=== PATIENT | female | born 1995 | race Caucasian/White ===

== ENCOUNTER → 2016-10-30 | Outpatient (CLI) | payer BC, OTHER ==
--- NOTE | 2016-10-30 08:44 | MR ---
EXAMINATION TYPE: MR brain wo con DATE OF EXAM: 10/30/2016 8:36 AM COMPARISON: NONE HISTORY: headaches Multiplanar and multispin-echo imaging of the brain was performed . The ventricles, basal cisterns and sulci overlying the cerebral convexities are within normal limits. There is no evidence for midline shift or mass effect. Acute intracranial hemorrhage or extra-axial collection is not evident. The brain parenchyma reveals no abnormal increased signal. No acute edema is identified. There is near complete opacification right maxillary sinus with obstruction of the right ostiomeatal unit. Mild mucosal thickening is seen of the left maxillary sinus. Moderate opacification is seen of the ethmoid air cells. There is a mild opacification and thickening of the sphenoid sinus and frontal sinuses. Nasal septum appears to be deviated from left to right. IMPRESSION: 1. No intracranial abnormalities seen. 2. Severe chronic pansinusitis.
[2016-10-30 09:24] LABS: CH 27.3; CHCM 31.8; HDW 2.66; HGB 12.4 gm/dL (11.4-16.0); MCH 26.8 pg (25.0-35.0); MCHC 31.1 g/dL (31.0-37.0); Mean Platelet Volume 6.8; RBC 4.64 m/uL (3.80-5.40); WBC 7.1 k/uL (3.8-10.6)
[2016-10-30 09:34] LABS: ALT 27 U/L (9-52); AST 23 U/L (14-36); Alkaline Phosphatase 72 U/L (38-126); Anion Gap 9 mmol/L; Blood Urea Nitrogen 12 mg/dL (7-17); Calcium 9.7 mg/dL (8.4-10.2); Carbon Dioxide 27 mmol/L (22-30); Chloride 108 mmol/L (98-107); Glucose 89 mg/dL (74-99); Non-African American GFR(MDRD) >60 (>60 ml/min/1.73 sqM); Potassium 4.3 mmol/L (3.5-5.1); Sodium 144 mmol/L (137-145); Total Bilirubin 0.5 mg/dL (0.2-1.3); Total Protein 7.5 g/dL (6.3-8.2)
== END | disposition home or self-care (01) ==
LOC: RADMRIMAIN 07:52
PROVIDERS: ATTEND Psychiatry & Neurology Pain Medicine
DX: J32.4 Chronic pansinusitis (principal); R51 Headache
CPT/HCPCS: 70551; 80053; 85027

== ENCOUNTER 2017-01-04 21:37 | Inpatient (IN) | payer BC, OTHER ==
[2017-01-04] MEDS ORDERED: SODIUM CHLORIDE 0.9% 1,000 ML IV ONE (22:38)
[2017-01-04] MEDS ORDERED: ACETAMINOPHEN TAB 325 MG TAB PO STA (22:38)
[2017-01-04 23:45] LABS: Appearance,Urine Clear (Clear); Bilirubin,Urine Negative (Negative); Glucose,Urine (UA) Negative (Negative); Ketones,Urine Negative (Negative); Leukocyte Esterase,Urine Negative (Negative); Mucus,Urine Rare /hpf; Nitrite,Urine Negative (Negative); PH, Urine 6.5 (5.0-8.0); Particle Count 4096; Protein,Urine Trace (Negative); RBC,Urine 2 /hpf (0-5); Specific Gravity,Urine 1.025 (1.001-1.035); Squamous Epithelial Cell,Urine 2 /hpf (0-4); UA Billing (MACRO vs. MICRO) MICRO; Urobilinogen,Urine <2.0 mg/dL (<2.0); WBC,Urine 2 /hpf (0-5)
[2017-01-04 23:48] LABS: ALT 43 U/L (9-52); AST 31 U/L (14-36); Alkaline Phosphatase 72 U/L (38-126); Anion Gap 10 mmol/L; Blood Urea Nitrogen 14 mg/dL (7-17); Calcium 9.4 mg/dL (8.4-10.2); Carbon Dioxide 22 mmol/L (22-30); Chloride 106 mmol/L (98-107); Glucose 112 mg/dL (74-99); Non-African American GFR(MDRD) >60 (>60 ml/min/1.73 sqM); Potassium 4.4 mmol/L (3.5-5.1); Sodium 138 mmol/L (137-145); Total Bilirubin 0.4 mg/dL (0.2-1.3); Total Protein 7.5 g/dL (6.3-8.2)
[2017-01-05 00:13] LABS: Basophils % (A) 0 %; CH 28.2; CHCM 33.2; Eosinophils % (A) 2 %; HCT 36.2 % (34.0-46.0); HDW 2.59; HGB 11.8 gm/dL (11.4-16.0); Luc # (Auto) 0.05; Luc % (Auto) 3; Lymphocytes # (A) 0.2 k/uL (1.0-4.8); Lymphocytes % (A) 12 %; MCH 27.7 pg (25.0-35.0); MCHC 32.6 g/dL (31.0-37.0); MCV 85.1 fL (80.0-100.0); Mean Platelet Volume 6.7; Monocytes # (A) 0.1 k/uL (0-1.0); Monocytes % (A) 5 %; Neutrophils # (A) 1.2 k/uL (1.3-7.7); Neutrophils % (A) 79 %; RBC 4.26 m/uL (3.80-5.40); RDW 13.5 % (11.5-15.5); WBC (Perox) 1.79
--- NOTE | 2017-01-05 00:29 | XR ---
EXAM: XR Chest, 2 Views CLINICAL HISTORY: Reason: cough TECHNIQUE: Frontal and lateral views of the chest. COMPARISON: No relevant prior studies available. FINDINGS: Lungs: Unremarkable. No consolidation. Pleural space: Unremarkable. No pneumothorax. Heart: Unremarkable. No cardiomegaly. Mediastinum: Unremarkable. Bones/joints: Unremarkable. IMPRESSION: Unremarkable chest x-rays.
[2017-01-05 00:35] LABS: WBC 1.5 k/uL (3.8-10.6)
[2017-01-05] MEDS ORDERED: MORPHINE SULFATE 4 MG/ML SYRINGE IV PRN (01:38)
[2017-01-05] MEDS ORDERED: NALOXONE 0.4 MG/ML 1 ML VIAL IV PRN (01:38)
[2017-01-05] MEDS ORDERED: ACETAMINOPHEN TAB 325 MG TAB PO PRN (01:38)
[2017-01-05] MEDS ORDERED: ONDANSETRON 4 MG/2 ML VIAL IVP PRN (01:38)
[2017-01-05] MEDS ORDERED: ALBUTEROL NEBULIZED 2.5 MG/3 ML INHALATION PRN (01:40)
[2017-01-05] MEDS ORDERED: SODIUM CHLORIDE 0.9% 1,000 ML IV ONE (01:40)
--- NOTE | 2017-01-05 01:42 | ED ---
Fever HPI - General Chief Complaint: Fever Stated Complaint: fever Source: patient Mode of arrival: ambulatory Limitations: no limitations - History of Present Illness Initial Comments: 21-year-old female with no past medical history presented for evaluation of fever for the last 2 days. She denies any other associated symptoms although she stated at one point she had a little bit of lower abdominal pain for a couple minutes couple days ago which has since resolved. She states earlier today she had a little bit of shortness of breath and cough for less than a minute which has since resolved. She denies any lightheadedness , dizziness, nausea, vomiting, chest pain, cough, abdominal pain. She does admit to a mild frontal headache for the last couple hours but otherwise nothing else significant. No change in vision. She also had a rash a couple days ago but this has also since resolved. - Related Data Home Medications Medication Instructions Recorded Confirmed Levothyroxine Sodium [Synthroid] 50 mcg PO DAILY 03/14/16 01/04/17 Albuterol Sulfate [Proair Hfa] 2 puff INHALATION RT-QID PRN 01/04/17 01/04/17 Cholecalciferol [Vitamin D3] 1,000 unit PO DAILY 01/04/17 01/04/17 Norgestimate-Ethinyl Estradiol 1 tab PO DAILY 01/04/17 01/04/17 [Sprintec 28 Day Tablet] Sertraline [Zoloft] 25 mg PO DAILY 01/04/17 01/04/17 Sulfamethox-Tmp 800-160Mg [Bactrim 1 tab PO BID 01/04/17 01/04/17 DS 800-160 mg] Topiramate [Topamax] 50 mg PO DAILY 01/04/17 01/04/17 Allergies Allergy/AdvReac Type Severity Reaction Status Date / Time Milk Containing Products Allergy Swelling Verified 01/04/17 22:30 soy Allergy Swelling Verified 01/04/17 22:30 sumatriptan [From Imitrex] Allergy Anaphylaxis Verified 01/04/17 22:30 wheat Allergy Swelling Verified 01/04/17 22:30 Review of Systems ROS Statement: Those systems with pertinent positive or pertinent negative responses have been documented in the HPI. ROS Other: All systems not noted in ROS Statement are negative. Constitutional: Reports: fever, chills Eyes: Denies: eye pain, eye discharge ENT: Denies: ear pain, throat pain Respiratory: Reports: dyspnea (Minor episode lasting less than a minute earlier today). Denies: cough Cardiovascular: Denies: chest pain, palpitations Endocrine: Denies: fatigue, polydipsia, polyuria Gastrointestinal: Denies: abdominal pain, nausea, vomiting, diarrhea, constipation Genitourinary: Denies: urgency, dysuria, frequency Musculoskeletal: Denies: back pain, arthralgia, myalgia Skin: Reports: rash (Nearly resolved). Denies: lesions Neurological: Denies: headache, weakness Psychiatric: Denies: anxiety, depression Hematological/Lymphatic: Denies: easy bleeding, easy bruising Past Medical History Past Medical History: No Reported History History of Any Multi-Drug Resistant Organisms: None Reported Past Surgical History: No Surgical Hx Reported Past Psychological History: Anxiety, Depression Smoking Status: Never smoker Past Alcohol Use History: Rare Past Drug Use History: None Reported General Exam Limitations: no limitations General appearance: alert, in no apparent distress Head exam: Present: atraumatic, normocephalic, normal inspection Eye exam: Present: normal appearance, PERRL, EOMI. Absent: scleral icterus, conjunctival injection, periorbital swelling ENT exam: Present: normal exam, mucous membranes moist Neck exam: Present: normal inspection. Absent: tenderness, meningismus, lymphadenopathy Respiratory exam: Present: normal lung sounds bilaterally. Absent: respiratory distress, wheezes, rales, rhonchi, stridor Cardiovascular Exam: Present: regular rate, normal rhythm, normal heart sounds. Absent: systolic murmur, diastolic murmur, rubs, gallop, clicks GI/Abdominal exam: Present: soft, normal bowel sounds. Absent: distended, tenderness, guarding, rebound, rigid Rectal exam: Present: deferred Extremities exam: Present: normal inspection, full ROM, normal capillary refill. Absent: tenderness, pedal edema, joint swelling, calf tenderness Back exam: Present: normal inspection Neurological exam: Present: alert, oriented X3, CN II-XII intact Psychiatric exam: Present: normal affect, normal mood Skin exam: Present: warm, dry, intact, rash (Right medial upper arm nearly resolved. There are also areas where she has been scratching causing minor abrasions to the skin.) Course Vital Signs 01/04/17 01/05/17 01/05/17 22:09 00:04 01:31 Temperature 103.1 F H 100.4 F H 100.7 F H Pulse Rate 141 H 120 H 119 H Respiratory 22 16 18 Rate Blood Pressure 127/81 137/76 132/77 O2 Sat by Pulse 99 98 98 Oximetry Medical Decision Making - Medical Decision Making 21-year-old female presented for evaluation of fever for 2 days. On HPI there is no source of infection elicited as she denies any abdominal pain, dysuria, shortness of breath/cough, and only admits to a mild headache started today without neck stiffness. She does have chronic back pain due to scoliosis and this is unchanged. On physical examination lungs are clear to auscultation bilaterally abdomen is soft and nontender without peritoneal signs of guarding, rigidity, rebound, and she is neurologically intact with cranial nerves II through XII intact without focal neurologic deficits and normal gait and station. Vitals reveal a temperature of 103.1 and a markedly tachycardia of 140. Patient was provided with IV fluid and labs revealed a marked leukopenia although her vitals improved mildly with a temperature of 100.4 and a tachycardia of 120. There is no source of infection and therefore she has not technically meet for sepsis. Her lactic acid is below 2. However we'll cover with antibiotics and admit patient to Dr. Arango for further treatment and evaluation in the morning. Bed request submitted and admission order placed. - Lab Data Result diagrams: 01/05/17 00:04 01/04/17 23:19 Lab Results 01/04/17 01/04/17 01/04/17 Range/Units 23:19 23:19 23:19 WBC (3.8-10.6) k/uL RBC (3.80-5.40) m/uL Hgb (11.4-16.0) gm/dL Hct (34.0-46.0) % MCV (80.0-100.0) fL MCH (25.0-35.0) pg MCHC (31.0-37.0) g/dL RDW (11.5-15.5) % Plt Count (150-450) k/uL Neutrophils % % Lymphocytes % % Monocytes % % Eosinophils % % Basophils % % Neutrophils # (1.3-7.7) k/uL Lymphocytes # (1.0-4.8) k/uL Monocytes # (0-1.0) k/uL Eosinophils # (0-0.7) k/uL Basophils # (0-0.2) k/uL Sodium 138 (137-145) mmol/L Potassium 4.4 (3.5-5.1) mmol/L Chloride 106 (98-107) mmol/L Carbon Dioxide 22 (22-30) mmol/L Anion Gap 10 mmol/L BUN 14 (7-17) mg/dL Creatinine 1.00 (0.52-1.04) mg/dL Est GFR (MDRD) Af Amer >60 (>60 ml/min/1.73 sqM) Est GFR (MDRD) Non-Af >60 (>60 ml/min/1.73 sqM) Glucose 112 H (74-99) mg/dL Plasma Lactic Acid Dane (0.7-2.0) mmol/L Calcium 9.4 (8.4-10.2) mg/dL Total Bilirubin 0.4 (0.2-1.3) mg/dL AST 31 (14-36) U/L ALT 43 (9-52) U/L Alkaline Phosphatase 72 (38-126) U/L Total Protein 7.5 (6.3-8.2) g/dL Albumin 4.5 (3.5-5.0) g/dL Lipase 67 (23-300) U/L Urine Color Yellow Urine Appearance Clear (Clear) Urine pH 6.5 (5.0-8.0) Ur Specific [place] 1.025 (1.001-1.035) Urine Protein Trace H (Negative) Urine Glucose (UA) Negative (Negative) Urine Ketones Negative (Negative) Urine Blood Moderate H (Negative) Urine Nitrite Negative (Negative) Urine Bilirubin Negative (Negative) Urine Urobilinogen <2.0 (<2.0) mg/dL Ur Leukocyte Esterase Negative (Negative) Urine RBC 2 (0-5) /hpf Urine WBC 2 (0-5) /hpf Ur Squamous Epith Cells 2 (0-4) /hpf Urine Mucus Rare H (None) /hpf Urine HCG, Qual Not Detected (Not Detectd) Group A Strep Rapid (Negative) 01/04/17 01/04/17 01/05/17 Range/Units 23:19 23:19 00:04 WBC 1.5 L* (3.8-10.6) k/uL RBC 4.26 (3.80-5.40) m/uL Hgb 11.8 (11.4-16.0) gm/dL Hct 36.2 (34.0-46.0) % MCV 85.1 (80.0-100.0) fL MCH 27.7 (25.0-35.0) pg MCHC 32.6 (31.0-37.0) g/dL RDW 13.5 (11.5-15.5) % Plt Count 179 (150-450) k/uL Neutrophils % 79 % Lymphocytes % 12 % Monocytes % 5 % Eosinophils % 2 % Basophils % 0 % Neutrophils # 1.2 L (1.3-7.7) k/uL Lymphocytes # 0.2 L (1.0-4.8) k/uL Monocytes # 0.1 (0-1.0) k/uL Eosinophils # 0.0 (0-0.7) k/uL Basophils # 0.0 (0-0.2) k/uL Sodium (137-145) mmol/L Potassium (3.5-5.1) mmol/L Chloride (98-107) mmol/L Carbon Dioxide (22-30) mmol/L Anion Gap mmol/L BUN (7-17) mg/dL Creatinine (0.52-1.04) mg/dL Est GFR (MDRD) Af Amer (>60 ml/min/1.73 sqM) Est GFR (MDRD) Non-Af (>60 ml/min/1.73 sqM) Glucose (74-99) mg/dL Plasma Lactic Acid Dane 1.5 (0.7-2.0) mmol/L Calcium (8.4-10.2) mg/dL Total Bilirubin (0.2-1.3) mg/dL AST (14-36) U/L ALT (9-52) U/L Alkaline Phosphatase (38-126) U/L Total Protein (6.3-8.2) g/dL Albumin (3.5-5.0) g/dL Lipase (23-300) U/L Urine Color Urine Appearance (Clear) Urine pH (5.0-8.0) Ur Specific [place] (1.001-1.035) Urine Protein (Negative) Urine Glucose (UA) (Negative) Urine Ketones (Negative) Urine Blood (Negative) Urine Nitrite (Negative) Urine Bilirubin (Negative) Urine Urobilinogen (<2.0) mg/dL Ur Leukocyte Esterase (Negative) Urine RBC (0-5) /hpf Urine WBC (0-5) /hpf Ur Squamous Epith Cells (0-4) /hpf Urine Mucus (None) /hpf Urine HCG, Qual (Not Detectd) Group A Strep Rapid Negative (Negative) 01/05/17 02:04 Sinus tachycardia with ventricular rate 123, TE 124, QRS 78, QT/QTC 298/426. Disposition Clinical Impression: Fever, Leukopenia, Tachycardia Disposition: ADMITTED IP TO THIS HOSP Referrals: Denise Spivey III, MD [Primary Care Provider] - 1-2 days Decision to Admit Reason: Admit from EC Decision Date: 01/05/17 Decision Time: 01:42
[2017-01-05 01:58] VITALS: RESP 16
[2017-01-05 02:48] VITALS: BMI 36.3
[2017-01-05] MEDS ORDERED: diphenhydrAMINE 50 MG/ML 1 ML VIAL IVP STA (06:09)
[2017-01-05] MEDS ORDERED: DEXAMETHASONE SOD PHOSPHATE 10 MG/ML 1 ML VIAL IV STA (06:10)
[2017-01-05] MEDS: LEVOTHYROXINE 50 MCG TAB PO SCH (06:25)
[2017-01-05] MEDS: SODIUM CHLORIDE 0.9% 1,000 ML IV SCH ×3 (07:11→19:19)
[2017-01-05] MEDS ORDERED: SULFAMETHOX-TMP 800-160MG 1 EACH TAB PO SCH (09:00)
[2017-01-05] MEDS: SERTRALINE 25 MG TAB PO SCH (09:26)
[2017-01-05] MEDS: NORGESTIMATE-ETHINYL ESTRADIOL 1 EACH TABLET PO SCH ×2 (09:26→09:35)
[2017-01-05] MEDS: TOPIRAMATE 25 MG TAB PO SCH (09:26)
[2017-01-05] MEDS: CHOLECALCIFEROL 1,000 UNIT TAB PO SCH (13:06)
[2017-01-05] MEDS ORDERED: diphenhydrAMINE 50 MG/ML 1 ML VIAL IVP PRN (15:38)
--- NOTE | 2017-01-05 20:11 | P.HPIM ---
History of Present Illness H&P Date: 01/05/17 21-year-old female with history of right-sided sinusitis who has been recently started on Bactrim by an ENT physician comes in to the hospital with complaints of fevers that has been ongoing for the last 3 days. There is no specific time and the fever appears to occur Patient's T-max has been 103F States to have some complains of a cough nonproductive in nature Patient has undergone a rapid strep test which was negative States to have generalized weakness no headaches blurry vision neck stiffness nausea vomiting chest pain urinary urgency or frequency vaginal discharge Patient is monogamous with one male Was noted to have severe leukopenia denies having any lumps in her throat axilla or her groin Review of Systems All systems: negative (Noted in HPI) Past Medical History Past Medical History: No Reported History Additional Past Medical History / Comment(s): hypothyroid History of Any Multi-Drug Resistant Organisms: None Reported Past Surgical History: No Surgical Hx Reported Past Psychological History: Anxiety, Depression Smoking Status: Never smoker Past Alcohol Use History: Rare Past Drug Use History: None Reported Medications and Allergies Home Medications and Allergies Comment(s): Physical exam Gen. appearance oriented 3 in no distress Neck is supple no JVD Lungs good air entry clear to auscultation no rhonchi or wheezing Heart S1-S2 heard regular rate and rhythm no murmurs appreciated Abdomen is soft nontender no organomegaly bowel sounds are intact Neurologically cranial nerves II-12 grossly intact no focal motor or sensory deficits noted Skin no abnormalities appreciated Oral cavity no significant tonsillar edema no erythema in the posterior pharynx No lymphadenopathy noted in her cervical region axillary region supraclavicular region or her inguinal area Home Medications Medication Instructions Recorded Confirmed Type Levothyroxine Sodium [Synthroid] 50 mcg PO DAILY 03/14/16 01/04/17 History Albuterol Sulfate [Proair Hfa] 2 puff INHALATION RT-QID PRN 01/04/17 01/04/17 History Cholecalciferol [Vitamin D3] 1,000 unit PO DAILY 01/04/17 01/04/17 History Norgestimate-Ethinyl Estradiol 1 tab PO DAILY 01/04/17 01/04/17 History [Sprintec 28 Day Tablet] Sertraline [Zoloft] 25 mg PO DAILY 01/04/17 01/04/17 History Sulfamethox-Tmp 800-160Mg [Bactrim 1 tab PO BID 01/04/17 01/04/17 History DS 800-160 mg] Topiramate [Topamax] 50 mg PO DAILY 01/04/17 01/04/17 History Allergies Allergy/AdvReac Type Severity Reaction Status Date / Time ceftriaxone [From Rocephin] Allergy Rash/Hives Verified 01/05/17 06:12 Milk Containing Products Allergy Swelling Verified 01/04/17 22:30 soy Allergy Swelling Verified 01/04/17 22:30 sumatriptan [From Imitrex] Allergy Anaphylaxis Verified 01/04/17 22:30 wheat Allergy Swelling Verified 01/04/17 22:30 Physical Exam Vitals: Vital Signs Temp Pulse Pulse Resp BP BP Pulse Ox 01/05/17 19:25 97.7 F 76 16 129/70 97 01/05/17 15:00 97.9 F 80 16 114/79 97 01/05/17 08:00 117 H 01/05/17 07:00 98.8 F 117 H 16 116/67 94 L 01/05/17 04:23 103.3 F H 137 H 16 118/71 100 01/05/17 01:57 99.5 F 119 H 16 132/77 99 01/05/17 01:31 100.7 F H 119 H 18 132/77 98 01/05/17 00:04 100.4 F H 120 H 16 137/76 98 01/04/17 22:09 103.1 F H 141 H 22 127/81 99 Intake and Output 01/05/17 01/05/17 01/05/17 06:59 14:59 22:59 Intake Total 2598 Balance 2598 Intake: Intake, IV Titration 938 Amount Sodium Chloride 0.9% 1, 938 000 ml @ 125 mls/hr IV . [facility] Rx#:[id number] Oral 1660 Other: Weight 90.265 kg Results CBC & Chem 7: 01/05/17 00:04 01/04/17 23:19 Labs: Abnormal Lab Results - Last 24 Hours (Table) 01/04/17 01/04/17 01/05/17 Range/Units 23:19 23:19 00:04 WBC 1.5 L* (3.8-10.6) k/uL Neutrophils # 1.2 L (1.3-7.7) k/uL Lymphocytes # 0.2 L (1.0-4.8) k/uL Glucose 112 H (74-99) mg/dL Urine Protein Trace H (Negative) Urine Blood Moderate H (Negative) Urine Mucus Rare H (None) /hpf Microbiology - Last 24 Hours (Table) 01/04/17 23:19 Group A Strep Throat Culture - Preliminary Throat Thrombosis Risk Factor Assmnt - Choose All That Apply Each Factor Represents 1 point: Obesity (BMI >25), Oral contraceptives or hormone replacement therapy Thrombosis Risk Factor Assessment Total Risk Factor Score: 2 Thrombosis Risk Factor Assessment Level: Low Risk Assessment and Plan Plan: #1 leukopenia with severe lymphopenia likely secondary to viral etiology #2 acute viral URI causing fevers #3 history of seizure disorder #4 hypothyroidism #5 chronic right-sided sinusitis of the maxillary sinus Plan Continue with IV hydration We'll obtain a heterophile antibody repeat labs in a.m. Patient received a dose of Decadron this morning Patient also received a dose of Rocephin on admission per patient was noted to have a rash If patient's white count does not improve will need to evaluate certain rare disorders patient's onset of symptoms and rapidity of for symptoms appear to be viral in nature we'll hold off on antibiotic therapy at this time I do not notice a rash at this time
[2017-01-05] MEDS ORDERED: NORGESTIMATE-ETHINYL ESTRADIOL 1 EACH TABLET PO SCH (21:00)
[2017-01-06] MEDS: SODIUM CHLORIDE 0.9% 1,000 ML IV SCH ×2 (03:06→08:37)
[2017-01-06] MEDS: LEVOTHYROXINE 50 MCG TAB PO SCH (05:45)
[2017-01-06 06:55] LABS: Basophils % (A) 0 %; CH 27.8; CHCM 33.3; Eosinophils % (A) 1 %; HCT 35.1 % (34.0-46.0); HDW 2.72; HGB 11.6 gm/dL (11.4-16.0); Luc # (Auto) 0.09; Luc % (Auto) 4; Lymphocytes # (A) 0.5 k/uL (1.0-4.8); Lymphocytes % (A) 20 %; MCH 27.6 pg (25.0-35.0); MCHC 32.9 g/dL (31.0-37.0); MCV 83.7 fL (80.0-100.0); Mean Platelet Volume 7.3; Monocytes # (A) 0.2 k/uL (0-1.0); Monocytes % (A) 7 %; Neutrophils # (A) 1.7 k/uL (1.3-7.7); Neutrophils % (A) 69 %; RBC 4.19 m/uL (3.80-5.40); RDW 13.5 % (11.5-15.5); WBC 2.5 k/uL (3.8-10.6); WBC (Perox) 2.82
[2017-01-06 07:15] LABS: Anion Gap 11 mmol/L; Blood Urea Nitrogen 8 mg/dL (7-17); Carbon Dioxide 19 mmol/L (22-30); Chloride 110 mmol/L (98-107); Glucose 109 mg/dL (74-99); Magnesium 1.8 mg/dL (1.6-2.3); Non-African American GFR(MDRD) >60 (>60 ml/min/1.73 sqM); Phosphorous 3.1 mg/dL (2.5-4.5); Potassium 3.9 mmol/L (3.5-5.1); Sodium 140 mmol/L (137-145)
[2017-01-06] MEDS: TOPIRAMATE 25 MG TAB PO SCH (08:36)
[2017-01-06] MEDS: SERTRALINE 25 MG TAB PO SCH (08:36)
[2017-01-06 12:06] VITALS: BP 120/56; PULSE 64; TEMP 97.9
[2017-01-06] MEDS: CHOLECALCIFEROL 1,000 UNIT TAB PO SCH (13:20)
--- NOTE | 2017-01-06 18:40 | P.DS ---
Providers Date of admission: 01/05/17 01:40 Attending physician: Jessica Arango [facility]: 21-year-old female with history of right-sided sinusitis who has been recently started on Bactrim by an ENT physician comes in to the hospital with complaints of fevers that has been ongoing for the last 3 days. There is no specific time and the fever appears to occur Patient's T-max has been 103F States to have some complains of a cough nonproductive in nature Patient has undergone a rapid strep test which was negative States to have generalized weakness no headaches blurry vision neck stiffness nausea vomiting chest pain urinary urgency or frequency vaginal discharge Patient is monogamous with one male Was noted to have severe leukopenia denies having any lumps in her throat axilla or her groin 01/06/2017 No overnight events No fevers were reported patient states to be feeling better Brief history patient was admitted with fevers of unknown origin 3 days Physical exam Gen. appearance oriented 3 in no distress Neck is supple no JVD Lungs good air entry clear to auscultation no rhonchi or wheezing Heart S1-S2 heard regular rate and rhythm no murmurs appreciated Abdomen is soft nontender no organomegaly bowel sounds are intact Neurologically cranial nerves II-12 grossly intact no focal motor or sensory deficits noted Skin no abnormalities appreciated Oral cavity no significant tonsillar edema no erythema in the posterior pharynx No lymphadenopathy noted in her cervical region axillary region supraclavicular region or her inguinal area Assessment and Plan Plan: #1 leukopenia with severe lymphopenia likely secondary to viral etiology versus drug-induced #2 acute viral URI causing fevers #3 history of seizure disorder #4 hypothyroidism #5 chronic right-sided sinusitis of the maxillary sinus Discontinue Bactrim at this time Patient has been afebrile for 24 hours white count has improved if this is a viral etiology patient will need a repeat CBC in 7 days to ensure improvement of her white count if patient continues to have symptoms thereafter would benefit from further workup patient does not have any lymph nodes that are enlarged heterophile antibody and strep test were negative e Plan - Discharge Summary New Discharge Prescriptions: Continue Levothyroxine Sodium [Synthroid] 50 mcg PO DAILY Norgestimate-Ethinyl Estradiol [Sprintec 28 Day Tablet] 1 tab PO DAILY Albuterol Sulfate [Proair Hfa] 2 puff INHALATION RT-QID PRN PRN Reason: Shortness Of Breath Topiramate [Topamax] 50 mg PO DAILY Sertraline [Zoloft] 25 mg PO DAILY Cholecalciferol [Vitamin D3] 1,000 unit PO DAILY Discontinued Sulfamethox-Tmp 800-160Mg [Bactrim DS 800-160 mg] 1 tab PO BID Discharge Medication List Levothyroxine Sodium [Synthroid] 50 mcg PO DAILY 03/14/16 [History] Albuterol Sulfate [Proair Hfa] 2 puff INHALATION RT-QID PRN 01/04/17 [History] Cholecalciferol [Vitamin D3] 1,000 unit PO DAILY 01/04/17 [History] Norgestimate-Ethinyl Estradiol [Sprintec 28 Day Tablet] 1 tab PO DAILY 01/04/17 [History] Sertraline [Zoloft] 25 mg PO DAILY 01/04/17 [History] Topiramate [Topamax] 50 mg PO DAILY 01/04/17 [History] Follow up Appointment(s)/Referral(s): Denise Hull III, MD [Primary Care Provider] - 01/07/17 11:00 am Patient Instructions/Handouts: Fever in Adults (GEN) Care Plan Goals (MU): CBC WITH DR. HULL IN 1 WEEK Discharge Disposition: HOME SELF-CARE
== END 2017-01-06 16:10 | disposition home or self-care (01) | DRG 153 ==
LOC: EC 21:37 → 3SUR 01-05 01:40
PROVIDERS: ADMIT Internal Medicine; ATTEND Internal Medicine
DX: J06.9 Acute upper respiratory infection, unspecified (principal); M41.9 Scoliosis, unspecified; F32.9 Major depressive disorder, single episode, unspecified; E03.9 Hypothyroidism, unspecified; G40.909 Epilepsy, unspecified, not intractable, without status epilepticus; J32.0 Chronic maxillary sinusitis; D72.810 Lymphocytopenia; F41.9 Anxiety disorder, unspecified; G89.29 Other chronic pain; Z79.899 Other long term (current) drug therapy
CPT/HCPCS: 36415; 71020; 80048; 80053; 81001; 81025; 83605; 83690; 83735; 84100; 85025; 86308; 87040; 87081; 87430; 93005; 96360; 96361; 99284

== ENCOUNTER 2018-05-18 02:25 | Emergency (ER) | payer BC, OTHER ==
[2018-05-18 02:35] VITALS: BP 132/80; RESP 18; TEMP 98.3
[2018-05-18] MEDS ORDERED: ALBUTEROL NEBULIZED 2.5 MG/3 ML INHALATION STA (03:07)
[2018-05-18 03:25] VITALS: PULSE 92
--- NOTE | 2018-05-18 04:07 | XR ---
EXAMINATION TYPE: XR chest 2V DATE OF EXAM: 05/18/2018 COMPARISON: 01/05/2017 HISTORY: Cough TECHNIQUE: Frontal and lateral views of the chest are obtained. FINDINGS: Heart and mediastinum are normal. Lungs are clear. Diaphragm is normal. Bony thorax is int act. Pulmonary vascularity is normal. IMPRESSION: Normal chest. No change.
--- NOTE | 2018-05-18 04:40 | ED ---
SOB HPI - General Chief Complaint: Shortness of Breath Stated Complaint: SOB Time Seen by Provider: 05/18/18 02:39 Source: patient, RN notes reviewed, old records reviewed Mode of arrival: ambulatory Limitations: no limitations - History of Present Illness Initial Comments: Patient is a 23 year old female, that is 33 weeks . Patient is here for cough and congestion. She had a cold last week, and reports that it has settled into her chest. Patient reports that she has a dry non productive cough. She is a non smoker, with history of asthma. Patient has no chest pain, denies abdominal pain or vaginal bleeding or discharge. Patient stats no fevers or chills. Denies leg swelling, hemoptysis. - Related Data Home Medications Medication Instructions Recorded Confirmed Pnv No.95/Ferrous Fum/Folic AC 1 each PO DAILY 05/18/18 05/18/18 [ Multivitamin Tablet] Previous Rx's Medication Instructions Recorded Albuterol Inhaler [Ventolin Hfa 1 - 2 puff INHALATION RT-Q6H PRN 05/18/18 Inhaler] #1 inhaler Amoxicillin 500 mg PO Q8H #21 capsule 05/18/18 Allergies Allergy/AdvReac Type Severity Reaction Status Date / Time ceftriaxone [From Rocephin] Allergy Rash/Hives Verified 01/05/17 06:12 soy Allergy Swelling Verified 01/04/17 22:30 sulfamethoxazole Allergy Rash/Hives Verified 05/18/18 02:35 [From Bactrim] sumatriptan [From Imitrex] Allergy Anaphylaxis Verified 01/04/17 22:30 trimethoprim [From Bactrim] Allergy Rash/Hives Verified 05/18/18 02:35 Review of Systems ROS Statement: Those systems with pertinent positive or pertinent negative responses have been documented in the HPI. ROS Other: All systems not noted in ROS Statement are negative. Past Medical History Past Medical History: No Reported History Additional Past Medical History / Comment(s): hypothyroid History of Any Multi-Drug Resistant Organisms: None Reported Past Surgical History: No Surgical Hx Reported Past Psychological History: Anxiety, Depression Smoking Status: Never smoker Past Alcohol Use History: Rare Past Drug Use History: None Reported General Exam - General Exam Comments Initial Comments: This is a 23 year old female, no acute distress. Limitations: no limitations General appearance: alert, in no apparent distress Head exam: Present: atraumatic, normocephalic, normal inspection Eye exam: Present: normal appearance, PERRL, EOMI. Absent: scleral icterus, conjunctival injection, periorbital swelling ENT exam: Present: normal exam, mucous membranes moist. Absent: normal oropharynx (erythematous oropharynx) Neck exam: Present: lymphadenopathy (tonsillar) Respiratory exam: Present: wheezes (slight wheezing in lower lung field). Absent: normal lung sounds bilaterally, respiratory distress, rales, rhonchi, stridor Cardiovascular Exam: Present: regular rate, normal rhythm, normal heart sounds. Absent: systolic murmur, diastolic murmur, rubs, gallop, clicks GI/Abdominal exam: Present: soft, normal bowel sounds. Absent: distended, tenderness, guarding, rebound, rigid Extremities exam: Present: normal inspection, full ROM, normal capillary refill. Absent: tenderness, pedal edema, joint swelling, calf tenderness Back exam: Present: normal inspection Neurological exam: Present: alert, oriented X3, CN II-XII intact Psychiatric exam: Present: normal affect, normal mood Skin exam: Present: warm, dry, intact, normal color. Absent: rash Course Vital Signs 05/18/18 05/18/18 05/18/18 02:32 03:18 03:25 Temperature 98.3 F Pulse Rate 90 84 92 Respiratory 18 Rate Blood Pressure 132/80 O2 Sat by Pulse 97 Oximetry Medical Decision Making - Medical Decision Making 23 year old female, 33 weeks complains of cough, congestion and shortness of breath. Denies chest pain. patient has slight wheezing on exam. Patient has no swelling, patient has no chest pain. Patient symptoms seem to be upper respiratory infection, less clinical concern for PE. PAtient agrees. Discussed starting patient on inhaler and amoxicillin for upper respiratory infection and sinus congestion. Discussed strict return parameters if she has chest pain, or any other concern. Patient agrees to treatment plan and will comply. Disposition Clinical Impression: Cough Disposition: HOME SELF-CARE Condition: Good Instructions: Bronchospasm (ED) Additional Instructions: Patient advised to rest, drink plenty of fluids. Patient should take the medications as prescribed. Follow-up with primary care physician and HOME HEALTH SCHEDULER. Return to emergency department if any alarming signs or symptoms occur. Prescriptions: Albuterol Inhaler [Ventolin Hfa Inhaler] 1 - 2 puff INHALATION RT-Q6H PRN #1 inhaler PRN Reason: Shortness Of Breath Amoxicillin 500 mg PO Q8H #21 capsule Is patient prescribed a controlled substance at d/c from ED?: No Referrals: None,Stated [Primary Care Provider] - 1-2 days Michelle Moya MD [STAFF PHYSICIAN] - 1-2 days Time of Disposition: 04:36
== END 2018-05-18 04:59 | disposition home or self-care (01) ==
LOC: EC 02:25
DX: O99.89 Other specified diseases and conditions complicating pregnancy, childbirth and the puerperium (principal); R05 Cough; R06.02 Shortness of breath; R09.81 Nasal congestion; Z3A.33 33 weeks gestation of pregnancy; Z88.1 Allergy status to other antibiotic agents; Z88.2 Allergy status to sulfonamides; Z91.018 Allergy to other foods
CPT/HCPCS: 71046; 94640; 99285

== ENCOUNTER 2018-05-20 02:16 | Emergency (ER) | payer OTHER ==
[2018-05-20 02:23] VITALS: RESP 20
[2018-05-20] MEDS ORDERED: ACETAMINOPHEN TAB 325 MG TAB PO STA (02:42)
[2018-05-20] MEDS ORDERED: DEXAMETHASONE SOD PHOSPHATE 10 MG/ML 1 ML VIAL IM STA (03:01)
--- NOTE | 2018-05-20 03:16 | ED ---
General Adult HPI - General Chief complaint: Allergic Reaction Stated complaint: Alergic reaction Time Seen by Provider: 05/20/18 02:31 Source: patient, family Mode of arrival: ambulatory Limitations: no limitations - History of Present Illness Initial comments: 23-year-old female patient presents to the emergency department today with complaints of increasing sore throat. Patient states he has been sick for the last week with upper respiratory symptoms including cough, nasal congestion, and sore throat. Patient states she [facility] was diagnosed with acute bronchitis and started on amoxicillin and albuterol inhaler. Patient states this evening her sore throat became worse. Patient states it hurts worse on the right side. States that she feels like her tongue is sore and swollen as well. States she has taken 6 doses of amoxicillin and does not feel any better, she is concerned she may be having ALLERGIC reaction to the amoxicillin. She denies any fevers or chills with this. She denies any shortness of breath, rash, itching, or lip swelling. She is 34 weeks , G1. She reports normal movement, no abdominal pain, no vaginal bleeding, or discharge. Patient denies any recent rash, chest pain, nausea, vomiting, diarrhea, constipation, back pain, numbness, tingling, dizziness, weakness, hematuria, dysuria, urinary urgency, urinary frequency, headache, visual changes , or any other complaints. - Related Data Home Medications Medication Instructions Recorded Confirmed Pnv No.95/Ferrous Fum/Folic AC 1 each PO DAILY 05/18/18 05/20/18 [ Multivitamin Tablet] Previous Rx's Medication Instructions Recorded Albuterol Inhaler [Ventolin Hfa 1 - 2 puff INHALATION RT-Q6H PRN 05/18/18 Inhaler] #1 inhaler Amoxicillin 500 mg PO Q8H #21 capsule 05/18/18 Allergies Allergy/AdvReac Type Severity Reaction Status Date / Time ceftriaxone [From Rocephin] Allergy Rash/Hives Verified 05/20/18 02:23 soy Allergy Swelling Verified 05/20/18 02:23 sulfamethoxazole Allergy Rash/Hives Verified 05/20/18 02:23 [From Bactrim] sumatriptan [From Imitrex] Allergy Anaphylaxis Verified 05/20/18 02:23 trimethoprim [From Bactrim] Allergy Rash/Hives Verified 05/20/18 02:23 Review of Systems ROS Statement: Those systems with pertinent positive or pertinent negative responses have been documented in the HPI. ROS Other: All systems not noted in ROS Statement are negative. Past Medical History Past Medical History: No Reported History Additional Past Medical History / Comment(s): hypothyroid History of Any Multi-Drug Resistant Organisms: None Reported Past Surgical History: No Surgical Hx Reported Past Psychological History: Anxiety, Depression Smoking Status: Never smoker Past Alcohol Use History: Rare Past Drug Use History: None Reported General Exam Limitations: no limitations General appearance: alert, in no apparent distress, other (Physical well- developed, well-nourished adult female patient in no acute distress. Vital signs upon presentation are temperature 98.8F, pulse 92, respirations 20, blood pressure 117/76, pulse ox 98% on room air.) Eye exam: Present: normal appearance, PERRL, EOMI. Absent: scleral icterus, conjunctival injection, periorbital swelling ENT exam: Present: normal exam, mucous membranes moist, TM's normal bilaterally , other (No tonsillar exudate.). Absent: normal oropharynx (Pharyngeal erythema , tonsillar hypertrophy) Neck exam: Present: normal inspection, lymphadenopathy (Left submandibular lymphadenopathy). Absent: tenderness, meningismus Respiratory exam: Present: normal lung sounds bilaterally. Absent: respiratory distress, wheezes, rales, rhonchi, stridor Cardiovascular Exam: Present: regular rate, normal rhythm, normal heart sounds. Absent: systolic murmur, diastolic murmur, rubs, gallop, clicks GI/Abdominal exam: Present: soft, normal bowel sounds, other (Gravid abdomen). Absent: distended, tenderness, guarding, rebound, rigid Neurological exam: Present: alert, oriented X3, CN II-XII intact Psychiatric exam: Present: normal affect, normal mood Skin exam: Present: warm, dry, intact, normal color. Absent: rash Course Vital Signs 05/20/18 02:19 Temperature 98.8 F Pulse Rate 92 Respiratory 20 Rate Blood Pressure 117/76 O2 Sat by Pulse 98 Oximetry Medical Decision Making - Medical Decision Making 23-year-old female patient presents the emergency department today for complaints of increasing sore throat. Physical examination did reveal some submandibular lymphadenopathy. Tonsils are erythematous and enlarged. No exudate. No evidence of. Tonsillar abscess. Patient was given Tylenol and injection of Decadron here in the department. She is taking amoxicillin, she is urged to continue this. She is instructed to follow-up with primary care physician for recheck in 1-2 days. Return parameters discussed in detail. She verbalizes understanding and agrees with this plan. - Lab Data Lab Results 05/20/18 Range/Units 02:39 Group A Strep Rapid Negative (Negative) Disposition Clinical Impression: Tonsillitis Disposition: HOME SELF-CARE Condition: Good Instructions: Tonsillitis (ED) Additional Instructions: Continue antibiotics. Continue taking Tylenol for pain control. Increase fluids. Do warm saltwater gargles. Follow-up with your primary care physician for recheck in 1-2 days. Return immediately for any new, worsening, or concerning symptoms. Is patient prescribed a controlled substance at d/c from ED?: No Referrals: None,Stated [Primary Care Provider] - 1-2 days Time of Disposition: 03:28
[2018-05-20 04:09] VITALS: BP 122/72; PULSE 83; TEMP 98.5
== END 2018-05-20 04:05 | disposition home or self-care (01) ==
LOC: EC 02:16
DX: J03.90 Acute tonsillitis, unspecified (principal); Z88.1 Allergy status to other antibiotic agents; Z88.2 Allergy status to sulfonamides; Z88.8 Allergy status to other drugs, medicaments and biological substances; Z91.018 Allergy to other foods
CPT/HCPCS: 87081; 87430; 99283; 96372; J1100

== ENCOUNTER → 2018-06-30 | Outpatient (CLI) | payer OTHER ==
[2018-06-30 23:23] VITALS: BP 113/61; PULSE 98; RESP 16; TEMP 97.6
--- NOTE | 2018-07-01 01:48 | US ---
EXAMINATION TYPE: US OB BPP wo non-stress DATE OF EXAM: 07/01/2018 COMPARISON: NONE CLINICAL HISTORY: variable declerations. Leg swelling. Limitations due to body habitus. EXAM PERFORMED: Transabdominal (TA) BPP PARAMETERS: PRESENTATION: Vertex HEART RATE: 142 bpm RHYTHM: Normal CAM: 9.89 cm DIAPHRAGM IMAGED: YES BPP SCORIN. Breathin (1 episode of breathing of 30 second duration in 30 minutes of scanning time) 2. Movement: 2 (at least 3 discrete body movements in 30 minutes) 3. Tone: 2 (1 episode of active flexion/extension of limb) 4. CAM: 2 (CAM index > 5cm) TOTAL SCORE: 8 / 8 Impression Normal biophysical profile. Amniotic fluid index is normal.
--- NOTE | 2018-07-22 12:54 | P.MSEPDOC ---
Presenting Problems - Arrival Data Date of Arrival on Unit: 06/30/18 Time of Arrival on Unit: 22:17 Mode of Transport: Ambulatory - Complaint OB-Reason for Admission/Chief Complaint: Other Comment: b/l foot swelling and mid lower back swelling per pt. Medical History - Information : 1 Para: 0 Term: 0 : 0 Abortions: Spontaneous or Elective: 0 Number of Living Children: 0 - Gestational Age Gestational Age by DELILAH (wks/days): 40 Weeks and 0 Days Review of Systems - Review of Systems Constitutional: No problems Breast: No problems ENT: No problems Cardiovascular: No problems Respiratory: No problems Gastrointestinal: No problems Genitourinary: No problems Musculoskeletal: No problems Neurological: No problems Skin: No problems Vital Signs - Temperature Temperature: 97.6 F Temperature Source: Oral - Pulse Right Sitting Brachial Pulse Rate: 98 Pulse Assessment Method: Automatic Cuff - Respirations Respiratory Rate: 16 Oxygen Delivery Method: Room Air O2 Sat by Pulse Oximetry: 98 - Blood Pressure Right Arm Sitting Blood Pressure: 113/61 Blood Pressure Mean: 78 Blood Pressure Source: Automatic Cuff Medical Screen Scoring (Pre) - Cervical Exam Dilation: Exam Deferred Effacement: Exam Deferred Membranes: Intact - Uterine Contractions Frequency: N/A Duration: N/A Intensity: N/A - Maternal Vital Signs Maternal Temperature: N/A Signs of Preeclampsia: N/A Maternal Respirations: N/A - Pain Assessment Pain Scale Used: Numeric (1 - 10) Pain Intensity: 0 - Maternal Trauma Maternal Trauma: N/A - Assessment Baseline FHR: 145 Heart Rate - NICHD Category: Category II (Indeterminate) = 3 NST: Non-reactive = 3 Position: N/A Station: N/A - Total Score Total Score (Pre): 6 - Level of Risk Level of Risk: Medium (6-9) Physician Notification (Pre) - Physician Notified Physician Notified Date: 06/30/18 Physician Notified Time: 23:10 Physician/Practitioner Notifed:: vesta Spoke With: vesta New Order Received: Yes - Notification Comment Comment: keep on monitor for another 30 mins and change pt's position often. Call if any decels. I agree with the RN Medical Screening Exam: No Physician's MSE Comment: inadequate documentation Risk & Benefit of care provided described in d/c instruction: No Diagnosis: 40 WEEKS GESTATION OF
== END | disposition home or self-care (01) ==
LOC: FBPOP 22:17
PROVIDERS: ATTEND Obstetrics & Gynecology
DX: O26.893 Other specified pregnancy related conditions, third trimester (principal); R22.43 Localized swelling, mass and lump, lower limb, bilateral; Z3A.40 40 weeks gestation of pregnancy
CPT/HCPCS: 76819

== ENCOUNTER 2018-07-02 06:00 | Inpatient (IN) | payer OTHER ==
[2018-07-02] MEDS ORDERED: LIDOCAINE 0.5% (PF) 5 MG/ML (50 ML SDV) SQ PRN (06:41)
[2018-07-02] MEDS ORDERED: TERBUTALINE 1 MG/ML VIAL SQ PRN (06:41)
[2018-07-02] MEDS ORDERED: METHYLERGONOVINE 0.2 MG/ML 1 ML AMP IM PRN (06:41)
[2018-07-02] MEDS ORDERED: CARBOPROST TROMETHAMINE 250 MCG/ML 1 ML AMP IM PRN (06:41)
[2018-07-02] MEDS ORDERED: OXYTOCIN 10 UNIT/ML 1 ML VIAL IM PRN (06:41)
[2018-07-02] MEDS ORDERED: OXYTOCIN 20 UNITS/1000 ML NS 1,000 ML IV SCH ×2 (06:45→23:45)
[2018-07-02 06:49] VITALS: BMI 39.6
[2018-07-02] MEDS: LACTATED RINGERS 1,000 ML IV SCH ×3 (07:01→15:35)
[2018-07-02 07:17] LABS: Basophils % (A) 0 %; Eosinophils # (A) 0.1 k/uL (0-0.7); Eosinophils % (A) 2 %; HCT 31.5 % (34.0-46.0); Hypochromasia Slight; Lymphocytes # (A) 1.8 k/uL (1.0-4.8); Lymphocytes % (A) 23 %; MCH 24.4 pg (25.0-35.0); MCHC 31.8 g/dL (31.0-37.0); MCV 76.7 fL (80.0-100.0); Mean Platelet Volume 7.9; Microcytosis Slight; Monocytes # (A) 0.4 k/uL (0-1.0); Monocytes % (A) 5 %; Neutrophils # (A) 5.4 k/uL (1.3-7.7); Neutrophils % (A) 68 %; Platelet Count 318 k/uL (150-450); Poikilocytosis Slight; RBC 4.11 m/uL (3.80-5.40); RDW 15.1 % (11.5-15.5)
[2018-07-02] MEDS ORDERED: BUTORPHANOL 1 MG/ML 1 ML VIAL IV PRN (08:49)
--- NOTE | 2018-07-02 08:52 | P.HPOB ---
History of Present Illness H&P Date: 07/02/18 Chief Complaint: 40-2/7 weeks, induction The patient is a 23-year-old 1 para 0 admitted at 40-2/7 weeks as established by last menstrual period and confirmed by 28 week ultrasound. She is admitted for postdates induction of labor with all signs reassuring. Her has been essentially uncomplicated though she did present to our office relatively late and with minimal care. On admission, all signs reassuring. Group B strep status is negative. Obstetrical history: 1 para 0 with current statistics listed in history present illness. EDC of 06/30/2018 was established by last menstrual period and confirmed by 28 week ultrasound. Laboratory workup demonstrates a blood type of A+ with a negative antibody screen. Rubella status is immune. The remainder of the laboratory workup was within normal limits. One hour Glucola was normal and group B strep status is negative. Gynecologic history: Unremarkable with no history of any infections to include STDs. Review of Systems Review of systems is confined to history of present illness. Past Medical History Past Medical History: Asthma Additional Past Medical History / Comment(s): hypothyroid History of Any Multi-Drug Resistant Organisms: None Reported Past Surgical History: No Surgical Hx Reported Past Anesthesia/Blood Transfusion Reactions: No Reported Reaction Past Psychological History: Anxiety, Depression Smoking Status: Never smoker Past Alcohol Use History: Rare Past Drug Use History: None Reported - Past Family History Mother Family Medical History: Cancer Medications and Allergies Home Medications Medication Instructions Recorded Confirmed Type Albuterol Inhaler [Ventolin Hfa 1 - 2 puff INHALATION RT-Q6H PRN 05/18/18 Rx Inhaler] #1 inhaler Pnv No.95/Ferrous Fum/Folic AC 1 each PO DAILY 05/18/18 07/02/18 History [ Multivitamin Tablet] Allergies Allergy/AdvReac Type Severity Reaction Status Date / Time ceftriaxone [From Rocephin] Allergy Rash/Hives Verified 07/02/18 06:40 soy Allergy Swelling Verified 07/02/18 06:40 sulfamethoxazole Allergy Rash/Hives Verified 07/02/18 06:40 [From Bactrim] sumatriptan [From Imitrex] Allergy Anaphylaxis Verified 07/02/18 06:40 trimethoprim [From Bactrim] Allergy Rash/Hives Verified 07/02/18 06:40 Exam Vital Signs Temp Pulse Resp BP Pulse Ox 07/02/18 06:40 97 F L 98 16 124/88 97 Intake and Output 07/01/18 07/02/18 07/02/18 22:59 06:59 14:59 Other: Weight 101.605 kg In general, this is a well-developed, well-nourished white female in no acute distress. Her heart has a regular rhythm and rate without murmur. Her lungs are clear to auscultation bilaterally in all yoo. Her abdomen is gravid, nondistended, has normal active bowel sounds, soft, nontender, and without any palpable masses aside from uterine fundus. Her extremities are without any cyanosis, clubbing, or significant edema and are nontender to palpation bilaterally. Digital cervical examination demonstrates her cervix to be 2-3 cm dilated, 50% effaced, the vertex in presentation at -2 station. Results Result Diagrams: 07/02/18 07:00 Abnormal Lab Results - Last 24 Hours (Table) 07/02/18 Range/Units 07:00 Hgb 10.0 L (11.4-16.0) gm/dL Hct 31.5 L (34.0-46.0) % MCV 76.7 L (80.0-100.0) fL MCH 24.4 L (25.0-35.0) pg Assessment and Plan (1) Term Current Visit: No Status: Acute Code(s): Z34.80 - ENCOUNTER FOR SUPRVSN OF NORMAL , UNSP TRIMESTER SNOMED Code(s): 04850542 Plan: The patient is admitted for a postdates induction of labor. Pitocin augmentation has been started and she has undergone artificial rupture of membranes. She will continue to have close maternal and surveillance and expectant management will be practiced. She is a good candidate for either IV or epidural analgesia, whichever she may choose.
[2018-07-02] MEDS: FAMOTIDINE 20 MG/2 ML VIAL IV SCH (10:00)
[2018-07-02] MEDS ORDERED: MIDAZOLAM 2 MG/2 ML VIAL ONE (14:21)
[2018-07-02] MEDS ORDERED: ROPIVACAINE 5MG/ML 20ML VIAL ONE (14:21)
[2018-07-02] MEDS ORDERED: OXYTOCIN 10 UNIT/ML 1 ML VIAL ONE (14:21)
[2018-07-02] MEDS ORDERED: SODIUM CHLORIDE 0.9% 100 ML BAG ONE (14:21)
[2018-07-02] MEDS ORDERED: fentaNYL (PF) 50 MCG/ML 2 ML AMP ONE (14:21)
[2018-07-02] MEDS ORDERED: ePHEDrine SULFATE/0.9% NACL/PF 50 MG/5 ML SYRINGE IV ONE (14:21)
[2018-07-02] MEDS ORDERED: fentaNYL (PF) 50 MCG/ML 5 ML AMP ONE (14:21)
[2018-07-02] MEDS ORDERED: PHENYLEPHRINE-0.9% NACL SYG 1 MG/10 ML SYRINGE ONE (14:21)
[2018-07-02] MEDS ORDERED: SUCCINYLCHOLINE CHLORIDE 100 MG/5 ML SYR IV ONE (14:21)
[2018-07-02] MEDS ORDERED: PROPOFOL 10 MG/ML 20 ML VIAL IV ONE (14:21)
[2018-07-02] MEDS ORDERED: PENICILLIN G POTASSIUM 5,000,000 UNIT in DEXTROSE 5% IN WATER 100 ML IVPB STA ×2 (21:05)
[2018-07-02] MEDS ORDERED: CLINDAMYCIN 900 MG in DEXTROSE 5% IN WATER 50 ML IVPB STA ×2 (23:15)
[2018-07-02] MEDS ORDERED: CITRIC ACID-SODIUM CITRATE 15 ML CUP PO ONE (23:20)
[2018-07-02] MEDS ORDERED: METOCLOPRAMIDE 5 MG/ML 2 ML VIAL IVP PRN (23:44)
[2018-07-02] MEDS ORDERED: NALOXONE 0.4 MG/ML 1 ML VIAL IV PRN (23:44)
[2018-07-02] MEDS ORDERED: diphenhydrAMINE 50 MG/ML 1 ML VIAL IVP PRN ×2 (23:44)
[2018-07-02] MEDS ORDERED: diphenhydrAMINE 25 MG CAP PO PRN (23:44)
[2018-07-02] MEDS ORDERED: ZOLPIDEM 5 MG TAB PO PRN (23:44)
[2018-07-02] MEDS ORDERED: ACETAMINOPHEN TAB 325 MG TAB PO PRN (23:44)
[2018-07-02] MEDS ORDERED: ONDANSETRON 4 MG/2 ML VIAL IVP PRN (23:44)
[2018-07-02] MEDS ORDERED: SIMETHICONE 80 MG CHEWABLE PO PRN (23:44)
[2018-07-02] MEDS ORDERED: LANOLIN CREAM 5 GM TUBE TOPICAL PRN (23:44)
[2018-07-02] MEDS ORDERED: diphenhydrAMINE 50 MG CAP PO PRN (23:44)
[2018-07-02] MEDS ORDERED: HYDROmorphone PCA 5 MG/25 ML SYRINGE IV PRN (23:44)
[2018-07-02] MEDS ORDERED: LACTATED RINGERS 1,000 ML IV SCH (23:45)
--- NOTE | 2018-07-02 23:59 | P.OP ---
Date of Procedure: 07/02/18 Preoperative Diagnosis: #1. 40-2/7 weeks, induction #2. Arrest of dilation and descent Postoperative Diagnosis: Same plus #3. Occiput posterior position #4. Nuchal cord 1 Procedure(s) Performed: #1. Primary low-transverse section Anesthesia: ANGEL Surgeon: Carlos Manley Cosmetologist #1: Velma Hawkins Estimated Blood Loss (ml): 600 IV fluids (ml): 1,000 Urine output (ml): 100 Pathology: other (Placenta) Condition: stable Disposition: floor Operative Findings: Preoperatively, the patient had been on Pitocin all day long and had dilated to approximate 6 cm by approximately 1600. She remained at that dilation with a high station until approximately 1999 at which time the decision was made to proceed to the operating room for primary low-transverse section for arrest of dilation and descent. There was significant At present as well. There was also suspicion of occiput posterior positioning. She was taken the operating room where she was delivered of a viable 8 lbs. 5 oz. baby girl with Apgars of 4 at 1 minute 8 at 5 minutes and 9 at 10 minutes in the right occiput posterior position. There was a loose nuchal cord 1 which was reduced prior to delivery of the body. The placenta was delivered manually, intact, and grossly normal with a grossly normal three-vessel cord. The uterus, tubes, and ovaries were entirely normal to inspection. Description of Procedure: The patient was prepped and draped in usual fashion after epidural anesthesia was bolused by the anesthesiologist. The level never nilda to an adequate level for surgery and general endotracheal anesthesia was instituted. Following placement of the endotracheal tube, a Pfannenstiel incision was made and extended into the abdominal cavity without difficulty. The bladder peritoneum was far distal to the intended site of incision and was left intact. A 2 cm incision was made in the transverse plane of the lower uterine segment to enter the uterus at which time clear fluid was again noted. The incision was extended in both directions using the bandage scissors. The head was encountered deep within the pelvis in the occiput posterior position as noted above. It was elevated up and through the incision where the nose and mouth were thoroughly suctioned. The remainder of the infant was delivered onto the field after the nuchal cord had been reduced. The cord was doubly clamped, cut , and the infant passed for resuscitative measures with weight and Apgars as noted above. A segment of cord was doubly clamped, cut, and set aside for cord gases which weren't sent to the lab for evaluation. The placenta was delivered manually and intact as noted above. The uterus was exteriorized and the interior cavity of the uterus swept of any remaining placental or membranous fragments. The margins of the incision were grasped with Doan clamps and the incision was closed in 2 layers. The first layer was a running locking stitch of 0 chromic catgut followed by a running imbricating layer of 0 chromic catgut, each from margin to margin. The posterior cul-de-sac was then suctioned using a guard. The uterine and ovarian findings were normal as noted above. The uterus was replaced within the abdominal cavity and the gutters were swept of any remaining blood, fluid, or clot. Any small points of bleeding in and around the incision were made hemostatic with the Bovie. After adequate hemostasis was established, the parietal peritoneum was loosely reapproximated and layer of muscles examined and found to be hemostatic. The fascia was closed with 2 running stitches of 0 Vicryl proceeding from the lateral margins to the midpoint. Subcutaneous tissues were irrigated, made hemostatic with the Bovie, and reapproximated with a running stitch of 30 plain catgut. The skin was reapproximated with a running subcuticular stitch of 4-0 Vicryl followed by placement of half-inch Steri-Strips with Mastisol. Estimated blood loss for the case was approximately 600 mL. There were no complications. All sponge, instrument, and needle counts were correct. The patient tolerated the procedure well and proceeded to the recovery room in stable condition. Both mother and infant are resting comfortably in recovery.
[2018-07-03 00:31] LABS: Glucose,Whole Blood 97 mg/dL (75-99)
[2018-07-03] MEDS: KETOROLAC 30 MG/ML 1 ML VIAL IVP PRN ×3 (00:47→14:06)
[2018-07-03] MEDS ORDERED: PENICILLIN G POTASSIUM 2,500,000 UNIT in DEXTROSE 5% IN WATER 100 ML IVPB SCH ×2 (01:06)
[2018-07-03 03:15] VITALS: RESP 16
[2018-07-03] MEDS: FAMOTIDINE 20 MG/2 ML VIAL IV SCH ×2 (03:34→09:59)
[2018-07-03] MEDS: LACTATED RINGERS 1,000 ML IV SCH ×2 (03:50→21:20)
[2018-07-03 06:31] LABS: Basophils % (A) 0 %; Eosinophils # (A) 0.1 k/uL (0-0.7); Eosinophils % (A) 1 %; HCT 24.8 % (34.0-46.0); Hypochromasia Moderate; Lymphocytes # (A) 1.4 k/uL (1.0-4.8); Lymphocytes % (A) 12 %; MCH 24.5 pg (25.0-35.0); MCHC 31.7 g/dL (31.0-37.0); MCV 77.1 fL (80.0-100.0); Mean Platelet Volume 8.7; Microcytosis Slight; Monocytes # (A) 0.3 k/uL (0-1.0); Monocytes % (A) 3 %; Neutrophils # (A) 9.1 k/uL (1.3-7.7); Neutrophils % (A) 82 %; Platelet Count 238 k/uL (150-450); Poikilocytosis Slight; RBC 3.21 m/uL (3.80-5.40); WBC 11.1 k/uL (3.8-10.6)
[2018-07-03 06:38] LABS: HGB 7.8 gm/dL (11.4-16.0)
[2018-07-03] MEDS: SENNOSIDES-DOCUSATE SODIUM 1 EACH TAB PO SCH ×2 (08:03→21:21)
[2018-07-03] MEDS: HYDROcodone/APAP 5-325MG 1 EACH TAB PO PRN ×2 (10:00→16:58)
--- NOTE | 2018-07-03 10:38 | P.PNOBGPC ---
Subjective - Subjective Interval history: The patient reports feeling hungry and denies any unusual symptoms consistent with the twitching she was noted with postoperatively last night. There are also no signs or symptoms of orthostasis. Patient reports: Reports appetite normal, Reports voiding normally, Reports pain well controlled, Reports ambulating normally : doing well, nursing well Objective - Vital Signs Latest vital signs: Vital Signs Temp Pulse Resp BP Pulse Ox 07/03/18 07:59 98.4 F 88 16 131/76 96 07/03/18 04:00 99 F 75 16 110/62 96 07/03/18 01:45 97.8 F 86 16 122/67 96 07/03/18 01:15 77 16 128/67 96 07/03/18 00:45 86 16 139/84 100 07/03/18 00:30 83 16 132/77 99 07/03/18 00:15 90 16 139/66 100 07/03/18 00:00 97.9 F 78 20 169/95 95 07/02/18 23:45 98.6 F 87 16 138/83 92 L Intake and Output 07/02/18 07/03/18 07/03/18 22:59 06:59 14:59 Intake Total 2550 Output Total 900 450 Balance 1650 -450 Intake: Intake, IV Titration 2550 Amount Clindamycin 900 mg In 50 Dextrose 5% in Water 50 ml @ 50 mls/hr IVPB ONCE STA Rx#:[id number] Lactated Ringers 1,000 ml 2000 @ 125 mls/hr IV .Q8H OLIVA Rx#:[id number] Oxytocin 20 Units/1000 ml 400 Ns 1,000 ml @ Per Protocol IV .Q0M OLIVA Rx#: [id number] Penicillin G Potassium 5, 100 000,000 unit In Dextrose 5% in Water 100 ml @ 100 mls/hr IVPB ONCE STA Rx#: [id number] Output: Urine 900 450 Other: # Voids 1 - Exam Extremities: Present: normal Abdomen: Present: normal appearance, soft. Absent: distention, tenderness Incision: Present: normal, dry, intact Uterus: Present: normal, firm (The uterine fundus as tonic and appropriate tender around the umbilicus.) - Labs Labs: Abnormal Lab Results - Last 24 Hours (Table) 07/03/18 Range/Units 06:21 WBC 11.1 H (3.8-10.6) k/uL RBC 3.21 L (3.80-5.40) m/uL Hgb 7.8 L D (11.4-16.0) gm/dL Hct 24.8 L (34.0-46.0) % MCV 77.1 L (80.0-100.0) fL MCH 24.5 L (25.0-35.0) pg Neutrophils # 9.1 H (1.3-7.7) k/uL Assessment and Plan (1) Term Current Visit: No Status: Acute Code(s): Z34.80 - ENCOUNTER FOR SUPRVSN OF NORMAL , UNSP TRIMESTER SNOMED Code(s): 65750956 (2) S/P section Current Visit: No Status: Acute Code(s): Z98.891 - HISTORY OF UTERINE SCAR FROM PREVIOUS SURGERY SNOMED Code(s): 626573556 Plan: Continue routine postoperative care. I have strongly encouraged her to ambulate in the hallways at least 4 times daily. Assuming no complications, I would anticipate discharge home tomorrow.
[2018-07-03] MEDS: IBUPROFEN 600 MG TAB PO PRN (19:47)
[2018-07-03] MEDS ORDERED: FAMOTIDINE 20 MG TAB PO SCH (21:00)
[2018-07-03] MEDS: HYDROcodone/APAP 7.5-325MG 1 EACH TAB PO PRN (23:06)
[2018-07-04] MEDS: IBUPROFEN 600 MG TAB PO PRN ×2 (02:15→07:50)
[2018-07-04] MEDS: HYDROcodone/APAP 7.5-325MG 1 EACH TAB PO PRN (04:57)
[2018-07-04] MEDS: SENNOSIDES-DOCUSATE SODIUM 1 EACH TAB PO SCH (07:59)
--- NOTE | 2018-07-04 11:07 | P.DS ---
Providers Date of admission: 07/02/18 06:37 Expected date of discharge: 07/04/18 Attending physician: Carlos Manley Primary care physician: Stated None - Discharge Diagnosis(es) (1) Term Current Visit: No Status: Acute (2) S/P section Current Visit: No Status: Acute Hospital Course: The patient is a 23-year-old 1 para 0 admitted at 40-2/7 weeks by average dating parameters. She is admitted for postdates induction of labor with all signs reassuring. Her was uncomplicated though she had late care. Group B strep status is negative. On labor and delivery, she had Pitocin augmentation started and underwent artificial rupture of membranes for clear fluid. She made very slow progress throughout the day and had an epidural catheter placed for analgesia. She arrested dilation and descent at approximately 6 cm and -2 station and was thought to have the fetus in the occiput posterior position. After approximately 5-6 hours at this dilation and station, she was taken the operating room where she was delivered of a viable 8 lbs. 5 oz. baby girl with Apgars of 4 at 1 minute, 8 at 5 minutes, and 9 at 10 minutes. She did experience an unusual reaction in the immediate postoperative recovery. With some lateral twitching of her head and generalized twitching of extremities of though she was absolutely responsive during the entire process. Vital signs remained stable as well and O2 saturation was normal throughout. This resolved approximately 40 minutes following surgery and, since that time, recovery and postoperative course have been entirely unremarkable. She was tolerating regular diet by the middle of the day of postoperative day #1. She was deemed stable for discharge on postoperative day #2 was discharged home to follow-up in the office in 2 weeks for an incision check and 6 weeks routinely. Discharge instructions included calling for any significantly increased bleeding or foul-smelling lochia, significantly increased fever abdominal pain, perineal complaints, breast complaints, incisional complaints, or anything else that concerned her. She was additionally instructed to have nothing in the vagina for at least 6 weeks time to include intercourse and to abstain from any heavy lifting over the same period of time. She was lastly instructed to do no driving until off of all pain medications or 2 weeks' time, whichever came first. She understood her instructions and agrees to follow up as noted above. Discharge medications included continued vitamins as she has opted to breast-feed. She additionally was provided with a prescription for [place] 5/ 325 mg, 1-2 by mouth every 6 hours when necessary pain, #20 dispensed with no refills. Maternal blood type is A+ and rubella status is immune. Discharge hemoglobin and hematocrit were 7.8 and 24.8 respectively and, as a result, she was asked to continue with iron sulfate 325 mg daily for at least 1-2 months. Procedures: #1. Pitocin induction and 2. Artificial rupture of membranes #3. Epidural analgesia 4. Primary low-transverse section Patient Condition at Discharge: Good Plan - Discharge Summary New Discharge Prescriptions: No Action Pnv No.95/Ferrous Fum/Folic AC [ Multivitamin Tablet] 1 each PO DAILY Albuterol Inhaler [Ventolin Hfa Inhaler] 1 - 2 puff INHALATION RT-Q6H PRN #1 inhaler PRN Reason: Shortness Of Breath Discharge Medication List Albuterol Inhaler [Ventolin Hfa Inhaler] 1 - 2 puff INHALATION RT-Q6H PRN #1 inhaler 05/18/18 [Rx] Pnv No.95/Ferrous Fum/Folic AC [ Multivitamin Tablet] 1 each PO DAILY [History] Follow up Appointment(s)/Referral(s): Carlos Manley MD [STAFF PHYSICIAN] - 2 Weeks Discharge Disposition: HOME SELF-CARE
[2018-07-04 15:19] VITALS: BP 137/94; PULSE 86; TEMP 97.5
== END 2018-07-04 17:00 | disposition home or self-care (01) | DRG 788 ==
LOC: 4FBP 06:37
PROVIDERS: ADMIT Obstetrics & Gynecology; ATTEND Obstetrics & Gynecology
PROC: 3E0R3NZ Introduction of Analgesics, Hypnotics, Sedatives into Spinal Canal, Percutaneous Approach (ICD-10-PCS; principal; 2018-07-02 23:01)
PROC: 10D00Z1 Extraction of Products of Conception, Low, Open Approach (ICD-10-PCS; principal; 2018-07-02 23:01)
PROC: 10907ZC Drainage of Amniotic Fluid, Therapeutic from Products of Conception, Via Natural or Artificial Opening (ICD-10-PCS; principal; 2018-07-02 23:01)
PROC: 3E033VJ Introduction of Other Hormone into Peripheral Vein, Percutaneous Approach (ICD-10-PCS; principal; 2018-07-02 23:01)
PROC: 00HU33Z Insertion of Infusion Device into Spinal Canal, Percutaneous Approach (ICD-10-PCS; principal; 2018-07-02 23:01)
DX: O48.0 Post-term pregnancy (principal); Z3A.40 40 weeks gestation of pregnancy; Z37.0 Single live birth; O62.1 Secondary uterine inertia; O69.81X0 Labor and delivery complicated by cord around neck, without compression, not applicable or unspecified; Z88.1 Allergy status to other antibiotic agents; Z88.2 Allergy status to sulfonamides; Z88.8 Allergy status to other drugs, medicaments and biological substances; Z91.018 Allergy to other foods; O99.52 Diseases of the respiratory system complicating childbirth; J45.909 Unspecified asthma, uncomplicated; Z79.899 Other long term (current) drug therapy
CPT/HCPCS: 85025; 86850; 86900; 86901; 88307

== ENCOUNTER 2019-01-31 02:11 | Emergency (ER) | payer OTHER ==
[2019-01-31 02:23] VITALS: RESP 17
--- NOTE | 2019-01-31 03:24 | ED ---
Extremity Problem HPI - General Chief complaint: Extremity Problem,Nontraumatic Stated complaint: Rt ankle pain Source: patient Mode of arrival: ambulatory Limitations: no limitations - History of Present Illness Initial comments: Brittany is a 23-year-old female who presents the emergency department today for evaluation of right ankle pain. Patient reports that the pain began in the end of July when she had a slip and fall on the ice. Patient reports that since that time she has recurrently rolled her ankle and been experiencing pain in her right ankle most prominent on the lateral side. She is also noted swelling. She has seen her primary care physician about this who advised her she has a sprain and to Bernard wrap it. Patient reports that the Bernard wrap isn't helping. He denies any acute injuries today. - Related Data Home Medications Medication Instructions Recorded Confirmed Pnv No.95/Ferrous Fum/Folic AC 1 each PO DAILY 05/18/18 07/02/18 [ Multivitamin Tablet] Previous Rx's Medication Instructions Recorded Albuterol Inhaler [Ventolin Hfa 1 - 2 puff INHALATION RT-Q6H PRN 05/18/18 Inhaler] #1 inhaler Allergies Allergy/AdvReac Type Severity Reaction Status Date / Time ceftriaxone [From Rocephin] Allergy Rash/Hives Verified 07/02/18 06:40 soy Allergy Swelling Verified 07/02/18 06:40 sulfamethoxazole Allergy Rash/Hives Verified 07/02/18 06:40 [From Bactrim] sumatriptan [From Imitrex] Allergy Anaphylaxis Verified 07/02/18 06:40 trimethoprim [From Bactrim] Allergy Rash/Hives Verified 07/02/18 06:40 Review of Systems ROS Statement: Those systems with pertinent positive or pertinent negative responses have been documented in the HPI. ROS Other: All systems not noted in ROS Statement are negative. Past Medical History Past Medical History: Asthma Additional Past Medical History / Comment(s): hypothyroid History of Any Multi-Drug Resistant Organisms: None Reported Past Surgical History: No Surgical Hx Reported Past Anesthesia/Blood Transfusion Reactions: No Reported Reaction Past Psychological History: Anxiety, Depression Smoking Status: Never smoker Past Alcohol Use History: Rare Past Drug Use History: None Reported - Past Family History Mother Family Medical History: Cancer General Exam - General Exam Comments Initial Comments: Physical Exam GENERAL: Patient is well-developed and well-nourished. Patient is nontoxic and well-hydrated and is in no distress. HENT: Normocephalic, Atraumatic. EYES: EOMI PULMONARY: Unlabored respirations CARDIOVASCULAR: Regular rate and rhythm Strong DP and PT pulses in the right lower extremity ABDOMEN: Obese SKIN: Skin is clear with no lesions or rashes and otherwise unremarkable. : Deferred NEUROLOGIC: Patient is alert and oriented x3. Moving all extremities spontaneously MUSCULOSKELETAL: Swelling to the right lateral ankle No obvious deformity No joint instability noted PSYCHIATRIC: Normal psychiatric evaluation Limitations: no limitations Course Vital Signs 01/31/19 01/31/19 02:20 04:06 Temperature 98.2 F 98.0 F Pulse Rate 83 80 Respiratory 17 17 Rate Blood Pressure 141/82 132/95 O2 Sat by Pulse 99 97 Oximetry Medical Decision Making - Medical Decision Making The patient was seen and evaluated, an x-ray was obtained in triage X-ray with no acute findings Patient will be placed in a air cast for support and discharged home. Patient will be referred to orthopedics for evaluation of chronic ankle pain after an apparent sprain. Patient was advised to wear more supportive footwear, continue rest, ice, compression and elevation until follow-up with orthopedics. Disposition Clinical Impression: Chronic pain of right ankle Disposition: HOME SELF-CARE Condition: Stable Instructions (If sedation given, give patient instructions): Arthralgia (ED) Is patient prescribed a controlled substance at d/c from ED?: No Referrals: Jackie Guillaume MD [Primary Care Provider] - 1-2 days [facility] [Provider Group] - 1-2 days
--- NOTE | 2019-01-31 03:39 | XR ---
EXAM: XR Right Ankle Complete, 3 Views CLINICAL HISTORY: ITS.REASON XR Reason: Pain TECHNIQUE: Frontal, lateral and oblique views of the right ankle. COMPARISON: No relevant prior studies available. FINDINGS: Bones/joints: Unremarkable. No acute fracture. No dislocation. Soft tissues: Soft tissue swelling. IMPRESSION: No acute fracture.
[2019-01-31 04:08] VITALS: BP 132/95; PULSE 80; TEMP 98
== END 2019-01-31 04:07 | disposition home or self-care (01) ==
LOC: EC 02:11
DX: G89.29 Other chronic pain (principal); M25.571 Pain in right ankle and joints of right foot; M25.471 Effusion, right ankle; Z88.1 Allergy status to other antibiotic agents; Z91.018 Allergy to other foods; Z88.2 Allergy status to sulfonamides
CPT/HCPCS: 73610; 99283; 29515; L4350

== ENCOUNTER 2019-05-09 13:42 | Emergency (ER) | payer OTHER ==
[2019-05-09] MEDS ORDERED: IPRATROPIUM-ALBUTEROL 3 ML NEB INHALATION STA (14:09)
--- NOTE | 2019-05-09 14:12 | ED ---
SOB HPI - General Chief Complaint: Shortness of Breath Stated Complaint: Pneumonia Time Seen by Provider: 05/09/19 13:59 Source: patient, RN notes reviewed Mode of arrival: ambulatory Limitations: no limitations - History of Present Illness Initial Comments: 23-year-old female presents emergency Department chief complaint of cough congestion. Patient states she started with a cold almost 2 weeks ago. Patient was treated with azithromycin and a Medrol Dosepak states that she finishes over a week ago states that she still remains very sick. Patient states that she has underlying asthma. She does not currently see a funeral pre arrangement counselor. Denies any known fever states that she's had hot and cold chills. Patient denies any chest pain, headache or dizziness she has mild nasal congestion no prescription medications other than inhalers. - Related Data Previous Rx's Medication Instructions Recorded Amoxicillin/Potassium Clav 1 tab PO Q12HR #20 tab 05/09/19 [Augmentin 875-125 Tablet] Ipratropium-Albuterol Nebulize 3 ml INHALATION QID #1 box 05/09/19 [Duoneb 0.5 mg-3 mg/3 ml Soln] predniSONE 50 mg PO DAILY #5 tab 05/09/19 Allergies Allergy/AdvReac Type Severity Reaction Status Date / Time ceftriaxone [From Rocephin] Allergy Rash/Hives Verified 05/09/19 14:16 soy Allergy Swelling Verified 05/09/19 14:16 sulfamethoxazole Allergy Rash/Hives/ Verified 05/09/19 14:16 [From Bactrim] fever sumatriptan [From Imitrex] Allergy Anaphylaxis Verified 05/09/19 14:16 trimethoprim [From Bactrim] Allergy Rash/Hives/ Verified 05/09/19 14:16 fever Review of Systems ROS Statement: Those systems with pertinent positive or pertinent negative responses have been documented in the HPI. ROS Other: All systems not noted in ROS Statement are negative. Past Medical History Past Medical History: Asthma, Pneumonia, Thyroid Disorder Additional Past Medical History / Comment(s): hypothyroid History of Any Multi-Drug Resistant Organisms: None Reported Past Surgical History: No Surgical Hx Reported Past Anesthesia/Blood Transfusion Reactions: No Reported Reaction Past Psychological History: Anxiety, Depression Smoking Status: Never smoker Past Alcohol Use History: Rare Past Drug Use History: None Reported - Past Family History Mother Family Medical History: Cancer General Exam Limitations: no limitations General appearance: alert, in no apparent distress Head exam: Present: atraumatic, normocephalic, normal inspection Eye exam: Present: normal appearance, PERRL, EOMI. Absent: scleral icterus, conjunctival injection, periorbital swelling ENT exam: Present: normal exam, normal oropharynx, mucous membranes moist, TM's normal bilaterally, normal external ear exam Neck exam: Present: normal inspection, full ROM. Absent: tenderness, meningismus, lymphadenopathy Respiratory exam: Present: wheezes, decreased breath sounds. Absent: normal lung sounds bilaterally, respiratory distress, rales, rhonchi, stridor Cardiovascular Exam: Present: regular rate, normal rhythm, normal heart sounds. Absent: systolic murmur, diastolic murmur, rubs, gallop, clicks Neurological exam: Present: alert, oriented X3 Skin exam: Present: warm, dry, intact, normal color. Absent: rash Course Vital Signs 05/09/19 13:53 Temperature 98.0 F Pulse Rate 97 Respiratory 20 Rate Blood Pressure 133/94 O2 Sat by Pulse 99 Oximetry Medical Decision Making - Medical Decision Making Chest x-ray shows no acute process. Patient's symptoms are consistent with asthmatic bronchitis. Patient states that she's been having ongoing issues with her asthma and shortness of breath and states that she does not currently see a funeral pre arrangement counselor. Patient will be recommended follow-up with pulmonology. Disposition Clinical Impression: Asthmatic bronchitis Disposition: HOME SELF-CARE Condition: Stable Instructions (If sedation given, give patient instructions): Acute Bronchitis (ED), Asthma (ED) Additional Instructions: Please return to the Emergency Department if symptoms worsen or any other concerns. Prescriptions: Amoxicillin/Potassium Clav [Augmentin 875-125 Tablet] 1 tab PO Q12HR #20 tab Ipratropium-Albuterol Nebulize [Duoneb 0.5 mg-3 mg/3 ml Soln] 3 ml INHALATION QID #1 box predniSONE 50 mg PO DAILY #5 tab Is patient prescribed a controlled substance at d/c from ED?: No Referrals: Jackie Guillaume MD [Primary Care Provider] - 1-2 days Time of Disposition: 14:46
--- NOTE | 2019-05-09 14:35 | XR ---
EXAMINATION TYPE: XR chest 2V DATE OF EXAM: 05/09/2019 COMPARISON: NONE TECHNIQUE: PA and lateral views submitted. HISTORY: Cough FINDINGS: The lungs are clear and there is no pneumothorax, pleural effusion, or focal pneumonia. No overt fa ilure. IMPRESSION: 1. No acute process.
[2019-05-09 15:16] VITALS: BP 126/77; PULSE 70; RESP 17; TEMP 97.9
== END 2019-05-09 15:16 | disposition home or self-care (01) ==
LOC: EC 13:42
DX: J45.998 Other asthma (principal); Z88.1 Allergy status to other antibiotic agents; Z91.018 Allergy to other foods; Z88.2 Allergy status to sulfonamides
CPT/HCPCS: 71046; 94640; 99285

== ENCOUNTER 2019-08-02 01:19 | Emergency (ER) | payer BC, OTHER ==
[2019-08-02 01:30] VITALS: PULSE 67; RESP 18; TEMP 98.1
[2019-08-02] MEDS ORDERED: SODIUM CHLORIDE 0.9% 1,000 ML IV STA (01:46)
[2019-08-02] MEDS ORDERED: diphenhydrAMINE 50 MG/ML 1 ML VIAL IVP STA (01:46)
[2019-08-02] MEDS ORDERED: ORPHENADRINE 30 MG/ML 2 ML VIAL IVP STA (01:46)
[2019-08-02] MEDS ORDERED: KETOROLAC 30 MG/ML 1 ML VIAL IVP STA (01:46)
[2019-08-02] MEDS ORDERED: METOCLOPRAMIDE 5 MG/ML 2 ML VIAL IVP STA (01:46)
--- NOTE | 2019-08-02 02:00 | ED ---
General Adult HPI - General Chief complaint: Headache Stated complaint: Headache Time Seen by Provider: 08/02/19 01:36 Source: patient, RN notes reviewed, old records reviewed Mode of arrival: ambulatory Limitations: no limitations - History of Present Illness Initial comments: Patient is a 24-year-old female who presents emergency department today for evaluation for migraine-like headache, reports it's mainly over the back of her head and scalp for the past 4 days. She reports she's been taking ibuprofen, naproxen and Tylenol, as well as smoking weed but has had no relief of her symptoms. She reports that she has complained of some nausea. Pain is worse with bright loud noises and bright lights. She's had a long history of migraines since she has been 8 years old. Patient reports that this feels no different from previous. - Related Data Previous Rx's Medication Instructions Recorded Amoxicillin/Potassium Clav 1 tab PO Q12HR #20 tab 05/09/19 [Augmentin 875-125 Tablet] Ipratropium-Albuterol Nebulize 3 ml INHALATION QID #1 box 05/09/19 [Duoneb 0.5 mg-3 mg/3 ml Soln] predniSONE 50 mg PO DAILY #5 tab 05/09/19 Ibuprofen [Motrin] 600 mg PO Q8HR PRN #20 tab 08/02/19 Metoclopramide [Reglan] 10 mg PO ACHS #12 tab 08/02/19 Allergies Allergy/AdvReac Type Severity Reaction Status Date / Time ceftriaxone [From Rocephin] Allergy Rash/Hives Verified 08/02/19 01:30 soy Allergy Swelling Verified 08/02/19 01:30 sulfamethoxazole Allergy Rash/Hives/ Verified 08/02/19 01:30 [From Bactrim] fever sumatriptan [From Imitrex] Allergy Anaphylaxis Verified 08/02/19 01:30 trimethoprim [From Bactrim] Allergy Rash/Hives/ Verified 08/02/19 01:30 fever Review of Systems ROS Statement: Those systems with pertinent positive or pertinent negative responses have been documented in the HPI. ROS Other: All systems not noted in ROS Statement are negative. Past Medical History Past Medical History: Asthma, Pneumonia, Thyroid Disorder Additional Past Medical History / Comment(s): hypothyroid, migraines, History of Any Multi-Drug Resistant Organisms: None Reported Past Surgical History: Section Past Anesthesia/Blood Transfusion Reactions: No Reported Reaction Past Psychological History: Anxiety, Depression Smoking Status: Never smoker Past Alcohol Use History: Rare Past Drug Use History: Marijuana - Past Family History Mother Family Medical History: Cancer General Exam Limitations: no limitations General appearance: alert, in no apparent distress Head exam: Present: atraumatic, normocephalic, normal inspection Eye exam: Present: normal appearance, PERRL, EOMI. Absent: scleral icterus, conjunctival injection, periorbital swelling ENT exam: Present: normal exam, mucous membranes moist Neck exam: Present: normal inspection. Absent: tenderness, meningismus, lymphadenopathy Respiratory exam: Present: normal lung sounds bilaterally. Absent: respiratory distress, wheezes, rales, rhonchi, stridor Cardiovascular Exam: Present: regular rate, normal rhythm, normal heart sounds. Absent: systolic murmur, diastolic murmur, rubs, gallop, clicks GI/Abdominal exam: Present: soft, normal bowel sounds. Absent: distended, tenderness, guarding, rebound, rigid Extremities exam: Present: normal inspection, full ROM, normal capillary refill. Absent: tenderness, pedal edema, joint swelling, calf tenderness Back exam: Present: normal inspection Neurological exam: Present: alert, oriented X3, CN II-XII intact Expanded Patient oriented to: Present: person, place, time Speech: Present: fluid speech Cranial nerves: EOM's Intact: Normal Cerebellar function: Finger to Nose: Normal Upper motor neuron: Pronator Drift: Normal Sensory exam: Upper Extremity Light Touch: Normal, Lower Extremity Light Touch: Normal Motor strength exam: RUE: 5, LUE: 5, RLE: 5, LLE: 5 Eye Response: (4) open spontaneously Motor Response: (6) obeys commands Verbal Response: (5) oriented [place] Total: 15 Psychiatric exam: Present: normal affect, normal mood Skin exam: Present: warm, dry, intact, normal color. Absent: rash Course Vital Signs 08/02/19 01:26 Temperature 98.1 F Pulse Rate 67 Respiratory 18 Rate Blood Pressure 134/61 O2 Sat by Pulse 100 Oximetry Medical Decision Making - Medical Decision Making 24-year-old female presents with migraine-like headache. Symptoms are 4 days. No neurological deficits. No fever. No meningeal signs or chills or is appears in no distress. She is given migraine cocktail. On reevaluation she is resting in bed, states that her headache is now 1 out of 10. I discussed that Patient can be discharged at this time with following up with neurology. Discussed return parameters and primary care follow-up. Disposition Clinical Impression: Migraine Disposition: HOME SELF-CARE Condition: Good Instructions (If sedation given, give patient instructions): Acute Headache (ED) Additional Instructions: Please use medication as discussed. Please follow up with family doctor if symptoms have not improved over the next two days. Please return to the emergency room if your symptoms increase or worsen or for any other concerns. Prescriptions: Ibuprofen [Motrin] 600 mg PO Q8HR PRN #20 tab PRN Reason: Pain Metoclopramide [Reglan] 10 mg PO ACHS #12 tab Is patient prescribed a controlled substance at d/c from ED?: No Referrals: Bernardino Gunderson MD [Primary Care Provider] - 1-2 days Time of Disposition: 03:10
[2019-08-02 03:23] VITALS: BP 121/83
== END 2019-08-02 03:23 | disposition home or self-care (01) ==
LOC: EC 01:19
DX: G43.909 Migraine, unspecified, not intractable, without status migrainosus (principal); Z88.1 Allergy status to other antibiotic agents; Z88.2 Allergy status to sulfonamides; Z91.018 Allergy to other foods
CPT/HCPCS: 99283; 96374; 96375 ×3; 96361; J1200; J2360; J2765; J1885

== ENCOUNTER → 2020-04-24 | Outpatient (CLI) | payer BC, OTHER | END | disposition home or self-care (01) | LOC: LABWHC1 09:17 | PROVIDERS: ATTEND Physician Assistant Medical | DX: R06.00 Dyspnea, unspecified (principal); R05 Cough | CPT/HCPCS: U0003; C9803 ==

== ENCOUNTER 2020-08-07 02:27 | Emergency (ER) | payer BC, OTHER ==
[2020-08-07 02:33] VITALS: BP 132/80; PULSE 89; RESP 18; TEMP 99.3
[2020-08-07] MEDS ORDERED: IBUPROFEN 400 MG TAB PO STA (02:50)
--- NOTE | 2020-08-07 02:55 | ED ---
Lower Extremity Injury HPI - General Chief Complaint: Extremity Injury, Lower Stated Complaint: lt thigh pain Time Seen by Provider: 08/07/20 02:44 Source: patient Mode of arrival: wheelchair Limitations: no limitations - History of Present Illness Initial Comments: This patient is a 25-year-old woman who presents to be evaluated for left thigh pain. She states that it started approximately one hour ago while she was working out. The patient states she was doing "squat to stands," when she felt a pop or tear in the anterior part of her left thigh. States that since that time she when she tries to lift her left leg she has pain. Patient did not fall or have any other injury. She denies any weakness or numbness. MD Complaint: thigh injury Onset/Timin -: hour(s) Injury: Thigh: Left Place: home Severity: mild Improves With: nothing Worsens With: movement Context: other Associated Symptoms: snap/pop sensation - Related Data Previous Rx's Medication Instructions Recorded Amoxicillin/Potassium Clav 1 tab PO Q12HR #20 tab 05/09/19 [Augmentin 875-125 Tablet] Ipratropium-Albuterol Nebulize 3 ml INHALATION QID #1 box 05/09/19 [Duoneb 0.5 mg-3 mg/3 ml Soln] predniSONE 50 mg PO DAILY #5 tab 05/09/19 Ibuprofen [Motrin] 600 mg PO Q8HR PRN #20 tab 08/02/19 Metoclopramide [Reglan] 10 mg PO ACHS #12 tab 08/02/19 Cyclobenzaprine [Flexeril] 10 mg PO TID #20 tab 08/07/20 Ibuprofen 800 mg PO TID #20 tablet 08/07/20 Allergies Allergy/AdvReac Type Severity Reaction Status Date / Time ceftriaxone [From Rocephin] Allergy Rash/Hives Verified 08/07/20 02:33 soy Allergy Swelling Verified 08/07/20 02:33 sulfamethoxazole Allergy Rash/Hives/ Verified 08/07/20 02:33 [From Bactrim] fever sumatriptan [From Imitrex] Allergy Anaphylaxis Verified 08/07/20 02:33 trimethoprim [From Bactrim] Allergy Rash/Hives/ Verified 08/07/20 02:33 fever Review of Systems ROS Statement: Those systems with pertinent positive or pertinent negative responses have been documented in the HPI. ROS Other: All systems not noted in ROS Statement are negative. Constitutional: Denies: fever, chills, weakness Respiratory: Denies: cough, dyspnea Cardiovascular: Denies: chest pain, palpitations, edema Gastrointestinal: Denies: abdominal pain Musculoskeletal: Reports: as per HPI, myalgia. Denies: back pain Skin: Denies: rash Neurological: Denies: headache, weakness, numbness, paresthesias Past Medical History Past Medical History: Asthma, Pneumonia, Thyroid Disorder Additional Past Medical History / Comment(s): hypothyroid, migraines, History of Any Multi-Drug Resistant Organisms: None Reported Past Surgical History: Section Past Anesthesia/Blood Transfusion Reactions: No Reported Reaction Past Psychological History: Anxiety, Depression Smoking Status: Never smoker Past Alcohol Use History: Rare Past Drug Use History: Marijuana - Past Family History Mother Family Medical History: Cancer General Exam Limitations: no limitations General appearance: alert, in no apparent distress Respiratory exam: Present: normal lung sounds bilaterally. Absent: respiratory distress, wheezes, rales, rhonchi, stridor Cardiovascular Exam: Present: regular rate, normal rhythm, normal heart sounds. Absent: systolic murmur, diastolic murmur, rubs, gallop GI/Abdominal exam: Present: soft. Absent: tenderness, guarding, rebound Left Hip exam: Absent: tenderness, swelling, abrasion, laceration, ecchymosis Upper Leg exam: Present: normal inspection, tenderness. Absent: swelling, abrasion, laceration, ecchymosis, deformity, crepitus, dislocation Knee exam: Present: normal inspection, full ROM. Absent: tenderness, swelling, abrasion, laceration Lower Leg exam: Present: normal inspection, full ROM. Absent: tenderness, swelling, abrasion Ankle exam: Present: normal inspection, full ROM. Absent: tenderness, swelling, abrasion, laceration Foot/Toe exam: Present: normal inspection, full ROM. Absent: tenderness, swelling, abrasion, laceration Neurovascular tendon exam: Present: no vascular compromise. Absent: abnormal cap refill, motor deficit, sensory deficit, tendon deficit, extremity cold to touch, pallor Neurological exam: Present: alert. Absent: motor sensory deficit (No sensorimotor deficit to left leg) Skin exam: Present: warm, dry, intact, normal color. Absent: rash Course Vital Signs 08/07/20 02:29 Temperature 99.3 F Pulse Rate 89 Respiratory 18 Rate Blood Pressure 132/80 O2 Sat by Pulse 100 Oximetry Disposition Clinical Impression: Quadriceps muscle strain Disposition: HOME SELF-CARE Condition: Good Instructions (If sedation given, give patient instructions): Muscle Strain (DC) Prescriptions: Cyclobenzaprine [Flexeril] 10 mg PO TID #20 tab Ibuprofen 800 mg PO TID #20 tablet Is patient prescribed a controlled substance at d/c from ED?: No Referrals: Tony Quinonez DO [Primary Care Provider] - 1-2 days
--- NOTE | 2020-08-07 03:22 | XR ---
EXAM: XR Left Femur, 2 Views CLINICAL HISTORY: Reason: injury Upper thigh pain. [place] pop while working out. TECHNIQUE: Frontal and lateral views of the left femur. 4 images. COMPARISON: No relevant prior studies available. FINDINGS: Bones/joints: Unremarkable. No acute fracture. No dislocation. Soft tissues: Unremarkable. IMPRESSION: Normal left femur x-rays.
== END 2020-08-07 04:07 | disposition home or self-care (01) ==
LOC: EC 02:27
DX: S76.112A Strain of left quadriceps muscle, fascia and tendon, initial encounter (principal); Z88.1 Allergy status to other antibiotic agents; Z88.2 Allergy status to sulfonamides; Z88.8 Allergy status to other drugs, medicaments and biological substances; Z91.018 Allergy to other foods; X50.0XXA Overexertion from strenuous movement or load, initial encounter
CPT/HCPCS: 99283

== ENCOUNTER → 2020-08-14 | Outpatient (CLI) | payer BC, OTHER ==
--- NOTE | 2020-08-14 12:11 | US ---
EXAMINATION TYPE: US pelvic complete DATE OF EXAM: 08/14/2020 COMPARISON: NONE CLINICAL HISTORY: N93.9 Abnormal bleeding R10.30 lower abd pain. Pt states abnormal vaginal bleeding x 6 months TECHNIQUE: Transabdominal (TA). Transabdominal sonographic images of the pelvis were acquired. Date of LMP: Unknown EXAM MEASUREMENTS: Uterus: 9.3 x 3.5 x 4.3 cm Endometrial Stripe: 0.8 cm Right Ovary: 2.9 x 2.7 x 1.7 cm Left Ovary: 2.6 x 2.5 x 1.7 cm 1. Uterus: Anteverted wnl 2. Endometrium: wnl 3. Right Ovary: wnl 4. Left Ovary: wnl 5. Bilateral Adnexa: wnl 6. Posterior cul-de-sac: wnl IMPRESSION: No distinct abnormality is appreciated.
== END | disposition home or self-care (01) ==
LOC: RADUSWWP 11:07
PROVIDERS: ATTEND Family Medicine
DX: N93.9 Abnormal uterine and vaginal bleeding, unspecified (principal)
CPT/HCPCS: 76856

== ENCOUNTER 2021-03-09 13:22 | Emergency (ER) | payer BC, OTHER ==
[2021-03-09 13:29] VITALS: BP 130/71; PULSE 64; RESP 18; TEMP 98.2
--- NOTE | 2021-03-09 14:16 | ED ---
General Adult HPI - General Chief complaint: Skin/Abscess/Foreign Body Stated complaint: rash around mouth and nose Time Seen by Provider: 03/09/21 13:42 Source: patient Mode of arrival: ambulatory Limitations: no limitations - History of Present Illness Initial comments: 25-year-old female presents to the emergency room for a chief complaint of rash. Patient states she has had a rash around her nose and lips for 7 months. Patient states she has tried several creams including an antifungal cream, antibacterial cream, and steroids. Patient states each cream seems to help but then it comes back. 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 Patient denies fevers or chills. States sometimes it has a burning sensation.Patient has no other complaints at this time including shortness of breath, chest pain, abdominal pain, nausea or vomiting, headache, or visual changes. - Related Data Previous Rx's Medication Instructions Recorded Amoxicillin/Potassium Clav 1 tab PO Q12HR #20 tab 05/09/19 [Augmentin 875-125 Tablet] Ipratropium-Albuterol Nebulize 3 ml INHALATION QID #1 box 05/09/19 [Duoneb 0.5 mg-3 mg/3 ml Soln] predniSONE 50 mg PO DAILY #5 tab 05/09/19 Ibuprofen [Motrin] 600 mg PO Q8HR PRN #20 tab 08/02/19 Metoclopramide [Reglan] 10 mg PO ACHS #12 tab 08/02/19 Cyclobenzaprine [Flexeril] 10 mg PO TID #20 tab 08/07/20 Ibuprofen 800 mg PO TID #20 tablet 08/07/20 Hydrocortisone Oint 1 applic TOPICAL BID 5 Days #5 gm 03/09/21 [Hydrocortisone 1% Oint] Allergies Allergy/AdvReac Type Severity Reaction Status Date / Time ceftriaxone [From Rocephin] Allergy Rash/Hives Verified 03/09/21 13:27 soy Allergy Swelling Verified 03/09/21 13:27 sulfamethoxazole Allergy Rash/Hives/ Verified 03/09/21 13:27 [From Bactrim] fever sumatriptan [From Imitrex] Allergy Anaphylaxis Verified 03/09/21 13:27 trimethoprim [From Bactrim] Allergy Rash/Hives/ Verified 03/09/21 13:27 fever Review of Systems ROS Statement: Those systems with pertinent positive or pertinent negative responses have been documented in the HPI. ROS Other: All systems not noted in ROS Statement are negative. Past Medical History Past Medical History: Asthma, Pneumonia, Thyroid Disorder Additional Past Medical History / Comment(s): hypothyroid, migraines, History of Any Multi-Drug Resistant Organisms: None Reported Past Surgical History: Section Past Anesthesia/Blood Transfusion Reactions: No Reported Reaction Past Psychological History: Anxiety, Depression Smoking Status: Never smoker Past Alcohol Use History: Rare Past Drug Use History: Marijuana - Past Family History Mother Family Medical History: Cancer General Exam Limitations: no limitations General appearance: alert, in no apparent distress Head exam: Present: atraumatic Eye exam: Present: normal appearance, PERRL, EOMI. Absent: scleral icterus, conjunctival injection ENT exam: Present: mucous membranes moist, other (Scaling erythematous plaques around the mouth as well as by the sides of the nose. No evidence for cellulitis or abscess) Neck exam: Present: normal inspection, full ROM. Absent: tenderness Respiratory exam: Absent: respiratory distress Neurological exam: Present: alert Course Vital Signs 03/09/21 13:27 Temperature 98.2 F Pulse Rate 64 Respiratory 18 Rate Blood Pressure 130/71 O2 Sat by Pulse 98 Oximetry Medical Decision Making - Medical Decision Making Symptoms have been ongoing for 7 months. Patient has tried several creams. She is currently on another antibiotic cream that she started yesterday. At this point I recommend continuing the antibiotic cream and we will again try another steroid cream. However stressed the importance of following with dermatology as she has tried several different medications. She is agreeable to this. I did give several referrals. She will return here for any worsening symptoms. Disposition Clinical Impression: Rash Disposition: HOME SELF-CARE Condition: Good Instructions (If sedation given, give patient instructions): Dermatitis (ED) Additional Instructions: Continue antibiotic cream. Try steroid cream and lotion. Follow up with your doctor in 1-2 days as well as dermatology. Return to the ER for any worsening symptoms such as fevers Prescriptions: Hydrocortisone Oint [Hydrocortisone 1% Oint] 1 applic TOPICAL BID 5 Days #5 gm Is patient prescribed a controlled substance at d/c from ED?: No Referrals: Tony Quinonez DO [Primary Care Provider] - 1-2 days Corrine Ríos MD [STAFF PHYSICIAN] - 1-2 days Spenser Johnson MD [REFERRING] - 1-2 days Time of Disposition: 14:14
== END 2021-03-09 15:07 | disposition home or self-care (01) ==
LOC: EC 13:22
DX: R21 Rash and other nonspecific skin eruption (principal); E03.9 Hypothyroidism, unspecified; J45.909 Unspecified asthma, uncomplicated; G43.909 Migraine, unspecified, not intractable, without status migrainosus; F32.9 Major depressive disorder, single episode, unspecified; F41.9 Anxiety disorder, unspecified; F12.90 Cannabis use, unspecified, uncomplicated; Z79.51 Long term (current) use of inhaled steroids; Z88.1 Allergy status to other antibiotic agents; Z88.2 Allergy status to sulfonamides
CPT/HCPCS: 99282

== ENCOUNTER 2021-04-05 10:43 | Emergency (ER) | payer BC, OTHER ==
[2021-04-05 10:55] VITALS: TEMP 98
[2021-04-05] MEDS ORDERED: DEXAMETHASONE SOD PHOSPHATE 10 MG/ML 1 ML VIAL IM STA (11:05)
[2021-04-05] MEDS ORDERED: IBUPROFEN 800 MG TAB PO STA (11:12)
--- NOTE | 2021-04-05 12:31 | ED ---
ENT HPI - General Chief complaint: ENT Stated complaint: sore throat Time Seen by Provider: 04/05/21 10:57 Source: patient, RN notes reviewed Mode of arrival: ambulatory Limitations: no limitations - History of Present Illness Initial comments: Patient is a 25 she'll female that presents to emergency department complaining of throat pain and sore throat for the past several days. She notes that she is not tested for Covid or has a history of strep throat. She was otherwise a well-appearing female in no apparent distress or pain. She noted that she did have some difficulty swallowing due to discomfort. She denied chest pain shortness of breath headache nausea vomiting diarrhea constipation fever fatigue chills. - Related Data Previous Rx's Medication Instructions Recorded Amoxicillin/Potassium Clav 1 tab PO Q12HR #20 tab 05/09/19 [Augmentin 875-125 Tablet] Ipratropium-Albuterol Nebulize 3 ml INHALATION QID #1 box 05/09/19 [Duoneb 0.5 mg-3 mg/3 ml Soln] predniSONE 50 mg PO DAILY #5 tab 05/09/19 Ibuprofen [Motrin] 600 mg PO Q8HR PRN #20 tab 08/02/19 Metoclopramide [Reglan] 10 mg PO ACHS #12 tab 08/02/19 Cyclobenzaprine [Flexeril] 10 mg PO TID #20 tab 08/07/20 Ibuprofen 800 mg PO TID #20 tablet 08/07/20 Hydrocortisone Oint 1 applic TOPICAL BID 5 Days #5 gm 03/09/21 [Hydrocortisone 1% Oint] Azithromycin [Zithromax Z-pack (6 0 mg PO DIRECTED #6 tab 04/05/21 tabs)] Allergies Allergy/AdvReac Type Severity Reaction Status Date / Time ceftriaxone [From Rocephin] Allergy Rash/Hives Verified 04/05/21 10:53 soy Allergy Swelling Verified 04/05/21 10:53 sulfamethoxazole Allergy Rash/Hives/ Verified 04/05/21 10:53 [From Bactrim] fever sumatriptan [From Imitrex] Allergy Anaphylaxis Verified 04/05/21 10:53 trimethoprim [From Bactrim] Allergy Rash/Hives/ Verified 04/05/21 10:53 fever Review of Systems ROS Statement: Those systems with pertinent positive or pertinent negative responses have been documented in the HPI. ROS Other: All systems not noted in ROS Statement are negative. Past Medical History Past Medical History: Asthma, Pneumonia, Thyroid Disorder Additional Past Medical History / Comment(s): hypothyroid, migraines, History of Any Multi-Drug Resistant Organisms: None Reported Past Surgical History: Section Past Anesthesia/Blood Transfusion Reactions: No Reported Reaction Past Psychological History: Anxiety, Depression Smoking Status: Never smoker Past Alcohol Use History: Rare Past Drug Use History: None Reported, Marijuana - Past Family History Mother Family Medical History: Cancer General Exam Limitations: no limitations General appearance: alert, in no apparent distress Head exam: Present: atraumatic, normocephalic, normal inspection Eye exam: Present: normal appearance, PERRL, EOMI. Absent: scleral icterus, conjunctival injection, periorbital swelling ENT exam: Present: normal exam, mucous membranes moist. Absent: normal oropharynx (Erythematous, swollen tonsils.) Neck exam: Present: normal inspection, full ROM. Absent: tenderness, lymphadenopathy Respiratory exam: Present: normal lung sounds bilaterally. Absent: respiratory distress, wheezes, rales, rhonchi, stridor Cardiovascular Exam: Present: regular rate, normal rhythm, normal heart sounds. Absent: systolic murmur, diastolic murmur, rubs, gallop, clicks Extremities exam: Present: normal inspection, full ROM, normal capillary refill. Absent: tenderness, pedal edema, joint swelling, calf tenderness Neurological exam: Present: alert, oriented X3 Psychiatric exam: Present: normal affect, normal mood Skin exam: Present: warm, dry, intact, normal color. Absent: rash Course Vital Signs 04/05/21 10:53 Temperature 98 F Medical Decision Making - Medical Decision Making 25 she'll female with a sore throat for the past several days. Covid test, strep test ordered. 800 mg of Motrin, 10 mg of Decadron ordered. Covid and strep test both negative. Patient most likely has tonsillitis, antibiotics sent to pharmacy. Case discussed with Dr. Damian, patient discharge home with follow-up primary care. - Lab Data Lab Results 04/05/21 04/05/21 Range/Units 11:06 11:06 Coronavirus (PCR) Not Detected (Not Detectd) Group A Strep Rapid Negative (Negative) Disposition Clinical Impression: Tonsillitis, Sore throat Disposition: HOME SELF-CARE Condition: Stable Instructions (If sedation given, give patient instructions): Tonsillitis (ED) Additional Instructions: Please return to the Emergency Department if symptoms worsen or any other concerns. Follow-up primary care 1-2 days. Tylenol and Motrin as day for pain. Take antibiotics as prescribed. Is patient prescribed a controlled substance at d/c from ED?: No Referrals: Tony Quinonez DO [Primary Care Provider] - 1-2 days Time of Disposition: 12:31
[2021-04-05 13:00] VITALS: PULSE 60; RESP 16
== END 2021-04-05 13:00 | disposition home or self-care (01) ==
LOC: EC 10:43
DX: J03.90 Acute tonsillitis, unspecified (principal); J45.909 Unspecified asthma, uncomplicated; E03.9 Hypothyroidism, unspecified; F41.9 Anxiety disorder, unspecified; F32.9 Major depressive disorder, single episode, unspecified
CPT/HCPCS: 87081; 87430; 87635; 99283; 96372; J1100

== ENCOUNTER → 2022-02-21 | Outpatient (CLI) | payer BC, OTHER ==
--- NOTE | 2022-02-21 22:08 | US ---
EXAMINATION TYPE: US transvaginal DATE OF EXAM: 02/21/2022 COMPARISON: 08/14/2020 CLINICAL HISTORY: N92.0 EXCESSIVE AND FREQUENT MENSTRUATION WITH REG. Put on control bleeding x 2 weeks. TECHNIQUE: Transvaginal (TV). EXAM MEASUREMENTS: Uterus: 7.9 x 3.8 x 4.7 cm Endometrial Stripe: .3 cm Right Ovary: 2.6 x 1.5 x 2.4 cm Left Ovary: 3.0 x 1.6 x 2.4 cm 1. Uterus: Anteverted Heterogenous area measuring 2.9 x 2.5 x 1.6 cm. 2. Endometrium: wnl 3. Right Ovary: wnl 4. Left Ovary: wnl 5. Bilateral Adnexa: wnl 6. Posterior cul-de-sac: wnl IMPRESSION: 1. No evidence for acute pelvic process. 2. Fibroid changes.
== END | disposition home or self-care (01) ==
LOC: RADUSWWP 16:37
PROVIDERS: ATTEND Family Medicine
DX: N92.0 Excessive and frequent menstruation with regular cycle (principal)
CPT/HCPCS: 76830

== ENCOUNTER 2022-07-25 17:04 | Emergency (ER) | payer BC, OTHER ==
[2022-07-25 17:13] VITALS: RESP 18; TEMP 98.7
--- NOTE | 2022-07-25 17:35 | ED ---
General Adult HPI - General Chief complaint: Chest Pain Stated complaint: Chest pain Time Seen by Provider: 07/25/22 17:14 Source: patient Mode of arrival: ambulatory Limitations: no limitations - History of Present Illness Initial comments: Dictation was produced using Cortona[employer] dictation software. please excuse any grammatical, word or spelling errors. Chief Complaint: 27-year-old female presents emergency part for chest pain History of Present Illness: Patient is a 27-year-old female with no significant past medical history presents emergency department for chest pain. She states it's sharp and dull at the same time. Nonradiating. No associated diaphoresis or nausea. No history of blood clots. Denies any Pain. No numbness and paresthesias to the arms or legs. The ROS documented in this emergency department record has been reviewed and confirmed by me. Those systems with pertinent positive or negative responses ramos ve been documented in the HPI. All other systems are other negative and/or noncontributory. PHYSICAL EXAM: General Impression: Alert and oriented x3, not in acute distress HEENT: Normocephalic atraumatic, extra-ocular movements intact, pupils equal and reactive to light bilaterally, mucous membranes moist. Cardiovascular: Heart regular rate and rhythm Chest: Able to complete full sentences, no retractions, no tachypnea Abdomen: abdomen soft, non-tender, non-distended, no organomegaly Musculoskeletal: Pulses present and equal in all extremities, no peripheral edema Motor: no focal deficits noted Neurological: CN II-XII grossly intact, no focal motor or sensory deficits noted Skin: Intact with no visualized rashes Psych: Normal affect and mood ED course: 27 y Old female presents emergency department for atypical chest with typical features. Vital signs upon arrival are within acceptable limits. Patient has no high-risk features. Nursing notes and chart review was performed EKG interpreted by me: Ventricular rate 74, sinus rhythm,. 131, QRS 94, QTC 43. No MS prolongation, no QTC prolongation, no ST or T-wave changes noted. . Overall, this EKG is unremarkable Laboratory evaluation obtained. CBC unremarkable. Coag panel metabolic panel is negative. Troponins is negative. Rest of labs unremarkable. Chest x-ray shows no acute processes. Patient observed in emergency department for 2 hours. Patient's medically stable. Patient given Toradol and discharged advised follow-up with primary care doctor. Patient has no high-risk features. Was pt. sent in by a medical professional or institution (, PHILLIP, STONE CIRCULAR SAWYER, urgent care, hospital, or long-term...) When possible be specific @ -No Did you speak to anyone other than the patient for history (EMS, parent, family, police, friend...)? What history was obtained from this source @ -No Did you review nursing and triage notes (agree or disagree)? Why? @ -I reviewed and agree with nursing and triage notes Were old charts reviewed (outside hosp., previous admission, EMS record, old EKG, old radiological studies, urgent care reports/EKG's, long-term records)? Report findings @ -No old charts were reviewed Differential Diagnosis (chest pain, altered mental status, abdominal pain women, abdominal pain men, vaginal bleeding, weakness, fever, dyspnea, syncope, headache, dizziness, GI bleed, back pain, seizure, CVA, palpatations, mental health)? @ -Differential Chest Pain: Stable Angina, Unstable Angina, STEMI, NSTEMI Aortic Dissection, Pneumothorax, Musculoskeletal, Esophageal Spasm GERD, Cholecystitis, Pancreatitis, Zoster, this is not meant to be an all-inclusive list. EKG interpreted by me (3pts min.). @ -As above X-rays interpreted by me (1pt min.). @ -Above CT interpreted by me (1pt min.). @ -None done U/S interpreted by me (1pt. min.). @ -None done What testing was considered but not performed or refused? (CT, X-rays, U/S, labs)? Why? @ -D-dimer was considered outpatient not tachycardic or hypoxic or showing any signs of respiratory distress What meds were considered but not given or refused? Why? @ -None Did you discuss the management of the patient with other professionals (professionals i.e. , PHILLIP, [employer] SAWYER, lab, RT, psych nurse, social media executive, telegraph repeater technician, teacher, postal delivery officer, patient case coordinator)? Give summary @ -No Was smoking cessation discussed for >3mins.? @ -No Was critical care preformed (if so, how long)? @ -No Were there social determinants of health that impacted care today? How? (Homelessness, low income, unemployed, alcoholism, drug addiction, transportation, low edu. Level, literacy, decrease access to med. care, usp, rehab)? @ -No Was there de-escalation of care discussed even if they declined (Discuss DNR or withdrawal of care, Hospice)? DNR status @ -No What co-morbidities impacted this encounter? (DM, HTN, Smoking, COPD, CAD, Cancer, CVA, ARF, Chemo, Hep., AIDS, mental health diagnosis, sleep apnea, m orbid obesity)? @ -None Was patient admitted / discharged? Hospital course, mention meds given and route, prescriptions, significant lab abnormalities, going to OR and other pertinent info. @ -See above Undiagnosed new problem with uncertain prognosis? @ -No Drug Therapy requiring intensive monitoring for toxicity (Heparin, Nitro, Insulin, Cardizem)? @ -No Were any procedures done? @ -No Diagnosis/symptom? @ -Atypical chest pain with typical features, no high-risk features Acute, or Chronic, or Acute on Chronic? @ -Acute Uncomplicated (without systemic symptoms) or Complicated (systemic symptoms)? @ -Uncomplicated Side effects of treatment? @ -No Exacerbation, Progression, or Severe Exacerbation? @ -No Poses a threat to life or bodily function? How? (Chest pain, [place], [place], pneumonia, PE, COPD, DKA, ARF, appy, cholecystitis, CVA, Diverticulitis, Homicidal, Suicidal, threat to staff... and all critical care pts) @ -No - Related Data Previous Rx's Medication Instructions Recorded Amoxicillin/Potassium Clav 1 tab PO Q12HR #20 tab 05/09/19 [Augmentin 875-125 Tablet] Ipratropium-Albuterol Nebulize 3 ml INHALATION QID #1 box 05/09/19 [Duoneb 0.5 mg-3 mg/3 ml Soln] predniSONE 50 mg PO DAILY #5 tab 05/09/19 Ibuprofen [Motrin] 600 mg PO Q8HR PRN #20 tab 08/02/19 Metoclopramide [Reglan] 10 mg PO ACHS #12 tab 08/02/19 Cyclobenzaprine [Flexeril] 10 mg PO TID #20 tab 08/07/20 Ibuprofen 800 mg PO TID #20 tablet 08/07/20 Hydrocortisone Oint 1 applic TOPICAL BID 5 Days #5 gm 03/09/21 [Hydrocortisone 1% Oint] Azithromycin [Zithromax Z-pack (6 0 mg PO DIRECTED #6 tab 04/05/21 tabs)] Allergies Allergy/AdvReac Type Severity Reaction Status Date / Time ceftriaxone [From Rocephin] Allergy Rash/Hives Verified 07/25/22 17:13 soy Allergy Swelling Verified 07/25/22 17:13 sulfamethoxazole Allergy Rash/Hives/ Verified 07/25/22 17:13 [From Bactrim] fever sumatriptan [From Imitrex] Allergy Anaphylaxis Verified 07/25/22 17:13 trimethoprim [From Bactrim] Allergy Rash/Hives/ Verified 07/25/22 17:13 fever Review of Systems ROS Statement: Those systems with pertinent positive or pertinent negative responses have been documented in the HPI. ROS Other: All systems not noted in ROS Statement are negative. Past Medical History Past Medical History: Asthma, Pneumonia, Thyroid Disorder Additional Past Medical History / Comment(s): hypothyroid, migraines, History of Any Multi-Drug Resistant Organisms: None Reported Past Surgical History: Section Past Anesthesia/Blood Transfusion Reactions: No Reported Reaction Past Psychological History: Anxiety, Depression Smoking Status: Never smoker Past Alcohol Use History: Rare Past Drug Use History: None Reported, Marijuana - Past Family History Mother Family Medical History: Cancer General Exam Limitations: no limitations Course Vital Signs 07/25/22 17:10 Temperature 98.7 F Pulse Rate 76 Respiratory 18 Rate Blood Pressure 118/80 O2 Sat by Pulse 99 Oximetry Medical Decision Making - Lab Data Result diagrams: 07/25/22 17:30 07/25/22 17:30 Lab Results 07/25/22 07/25/22 07/25/22 Range/Units 17:30 17:30 17:30 WBC 5.5 (3.8-10.6) k/uL RBC 4.48 (3.80-5.40) m/uL Hgb 13.4 (11.4-16.0) gm/dL Hct 38.9 (34.0-46.0) % MCV 87.0 (80.0-100.0) fL MCH 30.0 (25.0-35.0) pg MCHC 34.5 (31.0-37.0) g/dL RDW 12.8 (11.5-15.5) % Plt Count 240 (150-450) k/uL MPV 7.8 Neutrophils % 54 % Lymphocytes % 35 % Monocytes % 6 % Eosinophils % 2 % Basophils % 1 % Neutrophils # 3.0 (1.3-7.7) k/uL Lymphocytes # 1.9 (1.0-4.8) k/uL Monocytes # 0.3 (0-1.0) k/uL Eosinophils # 0.1 (0-0.7) k/uL Basophils # 0.0 (0-0.2) k/uL PT 10.1 (9.0-12.0) sec INR 0.9 (<1.2) APTT 21.7 L (22.0-30.0) sec Sodium 142 (137-145) mmol/L Potassium 4.1 (3.5-5.1) mmol/L Chloride 109 H (98-107) mmol/L Carbon Dioxide 26 (22-30) mmol/L Anion Gap 7 mmol/L BUN 12 (7-17) mg/dL Creatinine 1.08 H (0.52-1.04) mg/dL Est GFR (CKD-EPI)AfAm 81 (>60 ml/min/1.73 sqM) Est GFR (CKD-EPI)NonAf 70 (>60 ml/min/1.73 sqM) Glucose 84 (74-99) mg/dL Calcium 8.7 (8.4-10.2) mg/dL Magnesium 1.9 (1.6-2.3) mg/dL Total Bilirubin 0.4 (0.2-1.3) mg/dL AST 26 (14-36) U/L ALT 33 (4-34) U/L Alkaline Phosphatase 56 (38-126) U/L Troponin I (0.000-0.034) ng/mL Total Protein 6.7 (6.3-8.2) g/dL Albumin 4.0 (3.5-5.0) g/dL HCG, Quant <2.4 mIU/mL 07/25/22 Range/Units 18:05 WBC (3.8-10.6) k/uL RBC (3.80-5.40) m/uL Hgb (11.4-16.0) gm/dL Hct (34.0-46.0) % MCV (80.0-100.0) fL MCH (25.0-35.0) pg MCHC (31.0-37.0) g/dL RDW (11.5-15.5) % Plt Count (150-450) k/uL MPV Neutrophils % % Lymphocytes % % Monocytes % % Eosinophils % % Basophils % % Neutrophils # (1.3-7.7) k/uL Lymphocytes # (1.0-4.8) k/uL Monocytes # (0-1.0) k/uL Eosinophils # (0-0.7) k/uL Basophils # (0-0.2) k/uL PT (9.0-12.0) sec INR (<1.2) APTT (22.0-30.0) sec Sodium (137-145) mmol/L Potassium (3.5-5.1) mmol/L Chloride (98-107) mmol/L Carbon Dioxide (22-30) mmol/L Anion Gap mmol/L BUN (7-17) mg/dL Creatinine (0.52-1.04) mg/dL Est GFR (CKD-EPI)AfAm (>60 ml/min/1.73 sqM) Est GFR (CKD-EPI)NonAf (>60 ml/min/1.73 sqM) Glucose (74-99) mg/dL Calcium (8.4-10.2) mg/dL Magnesium (1.6-2.3) mg/dL Total Bilirubin (0.2-1.3) mg/dL AST (14-36) U/L ALT (4-34) U/L Alkaline Phosphatase (38-126) U/L Troponin I <0.012 (0.000-0.034) ng/mL Total Protein (6.3-8.2) g/dL Albumin (3.5-5.0) g/dL HCG, Quant mIU/mL Disposition Clinical Impression: Chest pain Disposition: HOME SELF-CARE Instructions (If sedation given, give patient instructions): Costochondritis (ED), Chest Pain (ED) Is patient prescribed a controlled substance at d/c from ED?: No Referrals: Tony Quinonez DO [Primary Care Provider] - 1-2 days Time of Disposition: 19:15
[2022-07-25 17:48] LABS: Basophils % (A) 1 %; Eosinophils # (A) 0.1 k/uL (0-0.7); Eosinophils % (A) 2 %; HCT 38.9 % (34.0-46.0); HGB 13.4 gm/dL (11.4-16.0); Lymphocytes # (A) 1.9 k/uL (1.0-4.8); Lymphocytes % (A) 35 %; MCHC 34.5 g/dL (31.0-37.0); Mean Platelet Volume 7.8; Monocytes # (A) 0.3 k/uL (0-1.0); Monocytes % (A) 6 %; Neutrophils % (A) 54 %; Platelet Count 240 k/uL (150-450); RBC 4.48 m/uL (3.80-5.40); RDW 12.8 % (11.5-15.5); WBC 5.5 k/uL (3.8-10.6)
[2022-07-25 17:56] LABS: ALT 33 U/L (4-34); AST 26 U/L (14-36); African American GFR (CKD) 81 (>60 ml/min/1.73 sqM); Alkaline Phosphatase 56 U/L (38-126); Anion Gap 7 mmol/L; Blood Urea Nitrogen 12 mg/dL (7-17); Calcium 8.7 mg/dL (8.4-10.2); Carbon Dioxide 26 mmol/L (22-30); Chloride 109 mmol/L (98-107); Glucose 84 mg/dL (74-99); Magnesium 1.9 mg/dL (1.6-2.3); Non-African American GFR(CKD) 70 (>60 ml/min/1.73 sqM); Sodium 142 mmol/L (137-145); Total Bilirubin 0.4 mg/dL (0.2-1.3); Total Protein 6.7 g/dL (6.3-8.2)
[2022-07-25 18:08] LABS: Potassium 4.1 mmol/L (3.5-5.1)
--- NOTE | 2022-07-25 18:10 | XR ---
EXAMINATION TYPE: XR chest 2V DATE OF EXAM: 07/25/2022 COMPARISON: 05/09/2019 HISTORY: Chest pain TECHNIQUE: FINDINGS: The heart and mediastinum are normal. Lungs are clear. Images normal. Bony thorax appears normal. IMPRESSION: Normal chest. No change.
[2022-07-25 18:11] LABS: HCG,Quantitative Serum <2.4 mIU/mL
[2022-07-25 18:12] LABS: INR 0.9 (<1.2); Partial Thromboplastin Time 21.7 sec (22.0-30.0); Prothrombin Time 10.1 sec (9.0-12.0)
[2022-07-25] MEDS ORDERED: KETOROLAC 15 MG/ML 1 ML VIAL IVP STA (18:57)
[2022-07-25 19:16] VITALS: BP 128/90; PULSE 65
== END 2022-07-25 20:06 | disposition home or self-care (01) ==
LOC: EC 17:04
DX: R07.9 Chest pain, unspecified (principal); J45.909 Unspecified asthma, uncomplicated; E03.9 Hypothyroidism, unspecified; K21.9 Gastro-esophageal reflux disease without esophagitis; F41.9 Anxiety disorder, unspecified; F32.A Depression, unspecified; F12.90 Cannabis use, unspecified, uncomplicated; Z79.899 Other long term (current) drug therapy; Z88.1 Allergy status to other antibiotic agents; Z88.2 Allergy status to sulfonamides; Z88.8 Allergy status to other drugs, medicaments and biological substances
CPT/HCPCS: 36415; 80053; 83735; 84484; 85025; 85610; 85730; 84702; 71046; 99285; 96374; J1885

== ENCOUNTER 2024-07-11 12:18 | Emergency (ER) | payer OTHER ==
[2024-07-11 12:27] VITALS: RESP 18
--- NOTE | 2024-07-11 12:35 | ED ---
URI HPI - General Source: patient, RN notes reviewed Mode of arrival: ambulatory Limitations: no limitations <Irma Quintana - Last Filed: 07/11/24 12:34> - General Source: patient, RN notes reviewed, old records reviewed Mode of arrival: ambulatory Limitations: no limitations - History of Present Illness MD Complaint: fever, cough, sore throat -: days(s) Quality: sharp Consistency: constant Improves With: nothing Worsens With: nothing Associated Symptoms: chills, myalgias Treatments Prior to Arrival: none <Sawyer Nye - Last Filed: 07/11/24 13:57> - General Chief Complaint: Upper Respiratory Infection Stated Complaint: Cough, sore throat, difficulty speaking Time Seen by Provider: 07/11/24 12:25 - History of Present Illness Initial Comments: Quick Note: This is a 29-year-old female who presents to the emergency department for coughing, congestion, and a sore throat. States that it started about a week ago and she is now having difficulty swallowing. Denies any chest pain or shortness of breath. (Irma Quintana) This is a 29-year-old female to the ER for cough and congestion sore throat difficulty swallowing and pain. Patient has multiple work sick contacts possible hospital sick contacts and patient was too sick to work today (Sawyer Nye) - Related Data Previous Rx's Medication Instructions Recorded Amoxicillin/Potassium Clav 1 tab PO Q12HR #20 tab 05/09/19 [Augmentin 875-125 Tablet] Ipratropium-Albuterol Nebulize 3 ml INHALATION QID #1 box 05/09/19 [Duoneb 0.5 mg-3 mg/3 ml Soln] predniSONE 50 mg PO DAILY #5 tab 05/09/19 Ibuprofen [Motrin] 600 mg PO Q8HR PRN #20 tab 08/02/19 Metoclopramide [Reglan] 10 mg PO ACHS #12 tab 08/02/19 Cyclobenzaprine [Flexeril] 10 mg PO TID #20 tab 08/07/20 Ibuprofen 800 mg PO TID #20 tablet 08/07/20 Hydrocortisone Oint 1 applic TOPICAL BID 5 Days #5 gm 03/09/21 [Hydrocortisone 1% Oint] Azithromycin [Zithromax Z-pack (6 0 mg PO DIRECTED #6 tab 09/24/21 tabs)] Azithromycin [Zithromax] 500 mg PO DAILY #5 tab 04/03/23 predniSONE 50 mg PO DAILY #5 tab 04/03/23 Amoxic-Pot Clav 875-125Mg 1 tab PO Q12HR #20 tablet 07/11/24 [Augmentin 875-125] Allergies Allergy/AdvReac Type Severity Reaction Status Date / Time ceftriaxone [From Rocephin] Allergy Rash/Hives Verified 07/11/24 12:27 soy Allergy Swelling Verified 07/11/24 12:27 sulfamethoxazole Allergy Rash/Hives/ Verified 07/11/24 12:27 [From Bactrim] fever sumatriptan [From Imitrex] Allergy Anaphylaxis Verified 07/11/24 12:27 trimethoprim [From Bactrim] Allergy Rash/Hives/ Verified 07/11/24 12:27 fever Review of Systems ROS Other: All systems not noted in ROS Statement are negative. <Irma Quintana - Last Filed: 07/11/24 12:34> ROS Other: All systems not noted in ROS Statement are negative. <Sawyer Nye - Last Filed: 07/11/24 13:57> ROS Statement: Those systems with pertinent positive or pertinent negative responses have been documented in the HPI. Past Medical History Past Medical History: Asthma, Pneumonia, Thyroid Disorder Additional Past Medical History / Comment(s): hypothyroid, migraines, History of Any Multi-Drug Resistant Organisms: None Reported Past Surgical History: Section Past Anesthesia/Blood Transfusion Reactions: No Reported Reaction Past Psychological History: Anxiety, Depression Smoking Status: Never smoker Past Alcohol Use History: Rare Past Drug Use History: None Reported - Past Family History Mother Family Medical History: Cancer <Irma Quintana - Last Filed: 07/11/24 12:34> General Exam Limitations: no limitations <Irma Quintana - Last Filed: 07/11/24 12:34> General appearance: alert, in no apparent distress Head exam: Present: atraumatic, normocephalic, normal inspection Eye exam: Present: normal appearance, PERRL, EOMI. Absent: scleral icterus, conjunctival injection, periorbital swelling ENT exam: Present: normal exam, mucous membranes moist Neck exam: Present: normal inspection. Absent: tenderness, meningismus, lymphadenopathy Respiratory exam: Present: normal lung sounds bilaterally. Absent: respiratory distress, wheezes, rales, rhonchi, stridor Cardiovascular Exam: Present: regular rate, normal rhythm, normal heart sounds. Absent: systolic murmur, diastolic murmur, rubs, gallop, clicks GI/Abdominal exam: Present: soft, normal bowel sounds. Absent: distended, tenderness, guarding, rebound, rigid Extremities exam: Present: normal inspection, full ROM, normal capillary refill. Absent: tenderness, pedal edema, joint swelling, calf tenderness Back exam: Present: normal inspection Neurological exam: Present: alert, oriented X3, CN II-XII intact Psychiatric exam: Present: normal affect, normal mood Skin exam: Present: warm, dry, intact, normal color. Absent: rash <Sawyer Nye - Last Filed: 07/11/24 13:57> - General Exam Comments Initial Comments: Visual Physical Exam Vital signs reviewed General: Well-appearing, nontoxic, no acute distress. Head: Normocephalic, atraumatic Eyes: PERRLA, EOMI ENT: Airway patent Chest: Nonlabored breathing Skin: No visual rash, normal skin tone Neuro: Alert and oriented 3 Musculoskeletal: No gross abnormalities (VoconnieeyIrma) Course <Sawyer Nye - Last Filed: 07/11/24 13:57> Vital Signs 07/11/24 12:25 Temperature 98.4 F Pulse Rate 72 Respiratory 18 Rate Blood Pressure 119/83 O2 Sat by Pulse 98 Oximetry - Reevaluation(s) Reevaluation #1: 07/11/24 13:54 Medical records reviewed (Sawyer Nye) Reevaluation #2: 07/11/24 13:54 Patient symptoms unchanged (Sawyer Nye) Reevaluation #3: 07/11/24 13:54 Patient informed of results and questions answered (Sawyer Nye) Reevaluation #4: Was pt. sent in by a medical professional or institution (, PA, TECHNOLOGY AND ENGINEERING TEACHER, urgent care, hospital, or retirement...) When possible be specific @ -no Did you speak to anyone other than the patient for history (EMS, parent, family, police, friend...)? What history was obtained from this source @ -no Did you review nursing and triage notes (agree or disagree)? Why? @ -agree Are old charts reviewed (outside hosp., previous admission, EMS record, old EKG, old radiological studies, urgent care reports/EKG's, retirement records)? Report findings @ -yes Differential Diagnosis (chest pain, altered mental status, abdominal pain women, abdominal pain men, vaginal bleeding, weakness, fever, dyspnea, syncope, headache, dizziness, GI bleed, back pain, seizure, CVA, palpatations, mental health, musculoskeletal)? @ -prior EKG interpreted by me (3pts min.). @ -yes X-rays interpreted by me (1pt min.). @ -yes negative for acute disease CT interpreted by me (1pt min.). @ -no U/S interpreted by me (1pt. min.). @ -no What testing was considered but not performed or refused? (CT, X-rays, U/S, labs)? Why? @ -none What meds were considered but not given or refused? Why? @ -none Did you discuss the management of the patient with other professionals (professionals i.e. , PA, TECHNOLOGY AND ENGINEERING TEACHER, lab, RT, psych nurse, hospital social worker, ships or barges loader, teacher, zoology technical officer, manager case management)? Give summary @ -no Was smoking cessation discussed for >3mins.? @ -no Was critical care preformed (if so, how long)? @ -no Were there social determinants of health that impacted care today? How? (Homelessness, low income, unemployed, alcoholism, drug addiction, transportation, low edu. Level, literacy, decrease access to med. care, snf, rehab)? @ -none Was there de-escalation of care discussed even if they declined (Discuss DNR or withdrawal of care, Hospice)? DNR status @ -no What co-morbidities impacted this encounter? (DM, HTN, Smoking, COPD, CAD, Cancer, CVA, ARF, Chemo, Hep., AIDS, mental health diagnosis, sleep apnea, morbid obesity)? @ -none Was patient admitted / discharged? Hospital course, mention meds given and route, prescriptions, significant lab abnormalities, going to OR and other pertinent info. @ - Undiagnosed new problem with uncertain prognosis? @ -no Drug Therapy requiring intensive monitoring for toxicity (Heparin, Nitro, Insulin, Cardizem)? @ -no Were any procedures done? @ -no Diagnosis/symptom? @ - Acute, or Chronic, or Acute on Chronic? @ -Acute Uncomplicated (without systemic symptoms) or Complicated (systemic symptoms)? @ -Complicated Side effects of treatment? @ -no Exacerbation, Progression, or Severe Exacerbation? @ -exacerbation Poses a threat to life or bodily function? How? (Chest pain, [place], [place], pneumonia, PE, COPD, DKA, ARF, appy, cholecystitis, CVA, Diverticulitis, Homicidal, Suici nay, threat to staff... and all critical care pts) @ -yes (Sawyer Nye) Medical Decision Making <Irma Quintana - Last Filed: 07/11/24 12:34> - Radiology Data Radiology results: report reviewed (Chest x-ray is negative for acute disease), image reviewed <Sawyer Nye - Last Filed: 07/11/24 13:57> - Medical Decision Making I performed the QuickNote portion of this chart. Signed Irma Quintana PA-C. (Irma Quintana) 29 female to ER for evaluation patient with sore throat will treat for bacterial tracheitis and patient can be discharged (Sawyer Nye) - Lab Data Lab Results 07/11/24 07/11/24 Range/Units 12:28 12:28 Influenza Type A (PCR) Not Detected (Not Detectd) Influenza Type B (PCR) Not Detected (Not Detectd) RSV (PCR) Not Detected (Not Detectd) SARS-CoV-2 (PCR) Not Detected (Not Detectd) Group A Strep (PCR) NOT DETECTED (Not Detectd) Disposition <Irma Quintana - Last Filed: 07/11/24 12:34> Is patient prescribed a controlled substance at d/c from ED?: No Time of Disposition: 14:00 <Sawyer Nye - Last Filed: 07/11/24 13:57> Clinical Impression: Acute bacterial tracheitis Disposition: HOME SELF-CARE Condition: Good Instructions (If sedation given, give patient instructions): Upper Respiratory Infection (ED) Prescriptions: Amoxic-Pot Clav 875-125Mg [Augmentin 875-125] 1 tab PO Q12HR #20 tablet Referrals: Tony Quinonez DO [Primary Care Provider] - 1-2 days
--- NOTE | 2024-07-11 13:00 | XR ---
EXAMINATION TYPE: XR chest 2V DATE OF EXAM: 07/11/2024 12:51 PM COMPARISON: 04/03/2023 CLINICAL INDICATION: Female, 29 years old with history of Cough, TECHNIQUE: XR chest 2V view(s) obtained. FINDINGS: The heart size is normal. The pulmonary vasculature is normal. The lungs are clear. IMPRESSION: 1. No acute pulmonary process. [facility], , 07/11/2024 12:57 PM
[2024-07-11 14:17] VITALS: BP 117/79; PULSE 61; TEMP 98
[2024-07-11] MEDS: AMOXIC-POT CLAV 875MG STARTER PACK 2 TAB BTL PO STA (14:17)
[2024-07-11] MEDS: AMOXIC-POT CLAV 875-125MG 1 EACH TAB PO STA (14:17)
== END 2024-07-11 14:17 | disposition home or self-care (01) ==
LOC: EC 12:18
DX: J04.10 Acute tracheitis without obstruction (principal); Z88.2 Allergy status to sulfonamides; Z88.1 Allergy status to other antibiotic agents; Z91.018 Allergy to other foods; Z88.8 Allergy status to other drugs, medicaments and biological substances
CPT/HCPCS: 71046; 87636; 87651; 99283